=== PATIENT | male | born 1965 | race African-American/Black ===

== ENCOUNTER 2016-06-24 12:57 | Inpatient (IN) | payer MEDICARE, MEDICAID ==
[~2016-06-24] VITALS: Ht 175.3 cm; Wt 95.1 kg
[~2016-06-24 12:57] MED LIST: AMLO2.5T PO; BENZ1TAB10 PO; DIVA500T69 PO; LEVO25TA9 PO; LITH300C3 PO; OLAN10TA22 PO; OMEP20 PO; ZOLP10 PO
[2016-06-24] MEDS ORDERED: DIPH25 PO (13:57)
[2016-06-24 14:35] LABS: BASOPHILS # (AUTO) 0.01 K/uL (0.00-0.20); BASOPHILS % (AUTO) 0.2 % (0.0-2.0); EOSINOPHILS # (AUTO) 0.09 K/uL (0.00-0.70); HEMOGLOBIN 13.8 g/dL (13.5-17.5); LYMPHOCYTES # (AUTO) 1.4 K/uL (1.0-4.8); LYMPHOCYTES % (AUTO) 27.5 % (22.0-44.0); MEAN CORPUSCULAR HEMOGLOBIN 30.6 pg (26.0-34.0); MEAN CORPUSCULAR HGB CONC 32.8 G/dL (31.0-37.0); MEAN CORPUSCULAR VOLUME 93 fL (80-100); MONOCYTES # (AUTO) 0.3 K/uL (0.1-1.0); MONOCYTES % (AUTO) 6.4 % (2.0-9.0); NEUTROPHILS # (AUTO) 3.3 K/uL (1.8-7.7); NEUTROPHILS % (AUTO) 64.2 % (40.0-70.0); PLATELET COUNT (AUTO) 213 K/uL (150-450); RED CELL DISTRIBUTION WIDTH 14.7 % (11.5-14.5); WHITE BLOOD COUNT (AUTO) 5.1 K/uL (4.5-11.0)
[2016-06-24 14:38] LABS: ANION GAP 6 mmol/L (8-16); CARBON DIOXIDE 31 mmol/L (22-29); CHLORIDE 105 mmol/L (98-107); POTASSIUM 4.4 mmol/L (3.5-5.1); SODIUM SERUM 142 mmol/L (136-145)
[2016-06-24 14:39] LABS: ALANINE AMINOTRANSFERASE 42 U/L (12-78); ALBUMIN 4.2 g/dL (3.4-5.0); ASPARTATE AMINOTRANSFERASE 26 U/L (15-37); BILIRUBIN,TOTAL 0.4 mg/dL (0.1-1.0); CALCIUM, TOTAL 9.3 mg/dL (8.8-10.5); CREATININE 1.48 mg/dL (0.60-1.30); GLOMERULAR FILTR. RATE CALC > 60 mL/min (>60); TOTAL PROTEIN, SERUM 7.5 g/dL (6.4-8.2); UREA NITROGEN, BLOOD 16 mg/dL (7-18)
[2016-06-24] MEDS ORDERED: PROMETHAZINE HCL 25 MG TABLET PO PRN (15:15)
[2016-06-24] MEDS ORDERED: ZOLPIDEM TARTRATE 10 MG TABLET PO PRN (15:15)
[2016-06-24] MEDS ORDERED: LOPERAMIDE HCL 2 MG CAPSULE PO PRN (15:15)
[2016-06-24] MEDS ORDERED: GuaiFENesin/D-METHORPHAN [SUGAR-FREE] 200-20MG/10 ML SYRUP UDCUP PO PRN (15:15)
[2016-06-24] MEDS ORDERED: ACETAMINOPHEN 325 MG TABLET PO PRN (15:15)
[2016-06-24] MEDS ORDERED: HALOPERIDOL 5 MG TABLET PO PRN (15:15)
[2016-06-24] MEDS ORDERED: MAGNESIUM HYDROXIDE SUSPENSION 30 ML UDCUP PO PRN (15:15)
[2016-06-24] MEDS ORDERED: MAG HYDROX/AL HYDROX/SIMETH ES 30 ML SUSPENSION UDCUP PO PRN (15:15)
[2016-06-24] MEDS ORDERED: HydrOXYzine PAMOATE 50 MG CAPSULE PO PRN (15:15)
[2016-06-24] MEDS ORDERED: LORazepam 2 MG TABLET PO ONE (15:45)
[2016-06-24] MEDS ORDERED: HALOPERIDOL 5 MG TABLET PO ONE (15:45)
[2016-06-24 18:37] VITALS: BP 136/77
[2016-06-24] MEDS: BENZTROPINE MESYLATE 2 MG TABLET PO SCH (19:30)
[2016-06-24] MEDS: THIAMINE HCL 100 MG TABLET PO SCH (19:30)
[2016-06-24] MEDS: HALOPERIDOL 10 MG TABLET PO SCH (20:47)
[2016-06-24] MEDS: ARIPiprazole 10 MG TABLET PO SCH (20:47)
[2016-06-24] MEDS: DIVALPROEX SODIUM 500 MG ER TABLET PO SCH (20:47)
[2016-06-24] MEDS: DiphenhydrAMINE HCL 50 MG CAPSULE PO SCH (20:47)
[2016-06-24] MEDS: LITHIUM CARBONATE 300 MG CAPSULE PO SCH (20:47)
[2016-06-24] MEDS ORDERED: DiphenhydrAMINE HCL 25 MG CAPSULE PO SCH (21:00)
[2016-06-25 03:56] VITALS: BP 126/86
[2016-06-25 08:18] LABS: BASOPHILS % (AUTO) 0.1 % (0.0-2.0); EOSINOPHILS % (AUTO) 2.6 % (1.0-6.0); HEMOGLOBIN 13.7 g/dL (13.5-17.5); LYMPHOCYTES # (AUTO) 1.4 K/uL (1.0-4.8); LYMPHOCYTES % (AUTO) 30.8 % (22.0-44.0); MEAN CORPUSCULAR HGB CONC 31.9 G/dL (31.0-37.0); MEAN CORPUSCULAR VOLUME 94 fL (80-100); MONOCYTES # (AUTO) 0.4 K/uL (0.1-1.0); MONOCYTES % (AUTO) 8.4 % (2.0-9.0); NEUTROPHILS # (AUTO) 2.7 K/uL (1.8-7.7); NEUTROPHILS % (AUTO) 58.1 % (40.0-70.0); PLATELET COUNT (AUTO) 199 K/uL (150-450); RED BLOOD CELL COUNT(AUTO) 4.56 MIL/uL (4.50-5.90); RED CELL DISTRIBUTION WIDTH 15.2 % (11.5-14.5); WHITE BLOOD COUNT (AUTO) 4.7 K/uL (4.5-11.0)
[2016-06-25 08:24] LABS: LITHIUM 1.04 mmol/L (0.60-1.20)
[2016-06-25 08:27] VITALS: BP 143/88
[2016-06-25 08:28] LABS: HEMOGLOBIN A1C 5.1 % (4.5-6.2)
[2016-06-25] MEDS: BENZTROPINE MESYLATE 2 MG TABLET PO SCH ×2 (08:55→16:48)
[2016-06-25] MEDS: MULTIVITAMINS WITH MINERALS, THERAPEUTIC TABLET PO SCH (08:55)
[2016-06-25] MEDS: THIAMINE HCL 100 MG TABLET PO SCH ×2 (08:55→16:48)
[2016-06-25] MEDS: FOLIC ACID 1 MG TABLET PO SCH (08:55)
[2016-06-25] MEDS: NICOTINE 7 MG/24 HOUR PATCH TD SCH ×2 (08:57→09:19)
[2016-06-25 09:03] LABS: ALANINE AMINOTRANSFERASE 37 U/L (12-78); ALBUMIN 3.9 g/dL (3.4-5.0); ANION GAP 7 mmol/L (8-16); ASPARTATE AMINOTRANSFERASE 23 U/L (15-37); BILIRUBIN,TOTAL 0.5 mg/dL (0.1-1.0); CALCIUM, TOTAL 9.5 mg/dL (8.8-10.5); CARBON DIOXIDE 29 mmol/L (22-29); CHLORIDE 108 mmol/L (98-107); CHOL/HDL RATIO 3.8 (4.2-7.3); CREATININE 1.12 mg/dL (0.60-1.30); GLOMERULAR FILTR. RATE CALC > 60 mL/min (>60); POTASSIUM 4.7 mmol/L (3.5-5.1); SODIUM SERUM 144 mmol/L (136-145); THYROID STIMULATING HORMONE 6.91 uIU/mL (0.36-3.74); TOTAL PROTEIN, SERUM 7.3 g/dL (6.4-8.2); UREA NITROGEN, BLOOD 17 mg/dL (7-18); VALPROIC ACID 90 mcg/mL (50-100)
[2016-06-25] MEDS: LORazepam 2 MG TABLET PO PRN (12:15)
[2016-06-25 16:08] VITALS: BP 126/90
[2016-06-25] MEDS: HALOPERIDOL 10 MG TABLET PO SCH (20:40)
[2016-06-25] MEDS: LITHIUM CARBONATE 300 MG CAPSULE PO SCH (20:40)
[2016-06-25] MEDS: ARIPiprazole 10 MG TABLET PO SCH (20:40)
[2016-06-25] MEDS: DiphenhydrAMINE HCL 50 MG CAPSULE PO SCH (20:41)
[2016-06-25] MEDS: DIVALPROEX SODIUM 500 MG ER TABLET PO SCH (20:41)
[2016-06-25] MEDS: ALBUTEROL SULFATE HFA 90 MCG/PUFF 8 GM INHALER IH PRN (21:11)
[2016-06-26 00:23] VITALS: BP 121/86
[2016-06-26] MEDS: THIAMINE HCL 100 MG TABLET PO SCH ×2 (08:10→16:38)
[2016-06-26] MEDS: BENZTROPINE MESYLATE 2 MG TABLET PO SCH ×2 (08:10→16:38)
[2016-06-26] MEDS: FOLIC ACID 1 MG TABLET PO SCH (08:10)
[2016-06-26] MEDS: MULTIVITAMINS WITH MINERALS, THERAPEUTIC TABLET PO SCH (08:10)
[2016-06-26] MEDS: NICOTINE 7 MG/24 HOUR PATCH TD SCH (08:12)
[2016-06-26] MEDS: ALBUTEROL SULFATE HFA 90 MCG/PUFF 8 GM INHALER IH PRN (08:13)
[2016-06-26 08:19] VITALS: BP 136/88
[2016-06-26] MEDS ORDERED: HYDROCORTISONE 1% 30 GM OINTMENT TP SCH (09:00)
[2016-06-26] MEDS ORDERED: NICOTINE 21 MG/24 HOUR PATCH TD SCH (12:00)
[2016-06-26] MEDS: LORazepam 2 MG TABLET PO PRN (12:26)
[2016-06-26] MEDS ORDERED: BENZ2TAB10 PO ×2 (14:44→16:11)
[2016-06-26] MEDS ORDERED: DIPH50 PO ×2 (14:44→16:11)
[2016-06-26] MEDS ORDERED: LITH300C3 PO (14:44)
[2016-06-26] MEDS ORDERED: DIVA500T52 PO (14:44)
[2016-06-26] MEDS ORDERED: ARIP10TA14 PO ×2 (14:44→16:11)
[2016-06-26 16:08] VITALS: BP 124/72
[2016-06-26] MEDS ORDERED: ALBU8HFA4 IH (16:11)
[2016-06-26] MEDS ORDERED: HC1C1.5 TP (16:11)
== END 2016-06-26 17:20 | disposition home or self-care (01) | DRG 885 ==
LOC: EEVIPCON 13:02 → EMS 13:02 → B2X 16:58
PROVIDERS: ADMIT Psychiatry & Neurology Psychiatry; ATTEND Psychiatry & Neurology Psychiatry
PROC: GZ51ZZZ Individual Psychotherapy, Behavioral (ICD-10-PCS; principal; 2016-06-24)
DX: F25.0 Schizoaffective disorder, bipolar type (principal); I10 Essential (primary) hypertension; H54.0 Blindness, both eyes; F20.0 Paranoid schizophrenia; F17.210 Nicotine dependence, cigarettes, uncomplicated; E78.00 Pure hypercholesterolemia, unspecified; E03.9 Hypothyroidism, unspecified; J45.909 Unspecified asthma, uncomplicated; K21.9 Gastro-esophageal reflux disease without esophagitis; Z91.19 Patient's noncompliance with other medical treatment and regimen; Z88.8 Allergy status to other drugs, medicaments and biological substances; Z88.5 Allergy status to narcotic agent; Z79.899 Other long term (current) drug therapy; F41.9 Anxiety disorder, unspecified
CPT/HCPCS: 83036; 84439; 84443; 86592; 99285; G0480; J3535

== ENCOUNTER → 2017-04-01 | Outpatient (CLI) | payer MEDICARE, OTHER, SELFPAY ==
[~2017-04-01] MED LIST changes: +ALBU8HFA4 IH; -AMLO2.5T PO; +ARIP10TA8 PO; -BENZ1TAB10 PO; +BENZ2TAB10 PO; +DIPH50 PO; +DIVA500T52 PO; +HC1C1.5 TP; -LEVO25TA9 PO; -OLAN10TA22 PO; -OMEP20 PO; -ZOLP10 PO
[2017-04-02 20:15] LABS: CHOL/HDL RATIO 3.2 (4.2-7.3)
== END | disposition home or self-care (01) ==
LOC: LABMN 09:15
PROVIDERS: ATTEND Psychiatry & Neurology Psychiatry
DX: F25.0 Schizoaffective disorder, bipolar type (principal); R79.89 Other specified abnormal findings of blood chemistry
CPT/HCPCS: 82947

== ENCOUNTER 2017-04-07 11:08 | Inpatient (IN) | payer MEDICARE, MEDICAID ==
[~2017-04-07] VITALS: Ht 172.7 cm; Wt 84.5 kg
[2017-04-07] MEDS ORDERED: ChlorproMAZINE HCL 100 MG TABLET PO PRN (11:45)
[2017-04-07] MEDS ORDERED: ALBUTEROL SULFATE HFA 90 MCG/PUFF 8 GM INHALER IH PRN (11:45)
[2017-04-07] MEDS ORDERED: OLANZapine 5 MG RAPDIS TABLET PO PRN (11:45)
[2017-04-07 13:46] VITALS: BP 144/98
[2017-04-07 13:55] VITALS: BP 144/89
[2017-04-07] MEDS ORDERED: INFLUENZA VIRUS VACCINE QVS 2017-18 (3YR+)/PF 60 MCG/0.5 ML SYRINGE IM ONE (14:00)
[2017-04-07] MEDS ORDERED: PNEUMOCOCCAL VACCINE POLYVALENT 0.5 ML VIAL [PPSV23] IM ONE (14:00)
[2017-04-07] MEDS: LORazepam 2 MG TABLET PO PRN (14:03)
[2017-04-07] MEDS: NICOTINE 14 MG/24 HOUR PATCH TD SCH (14:10)
[2017-04-07] MEDS ORDERED: TUBERCULIN, PURIFIED PROTEIN DERIVATIVE 5 TU/0.1 ML SYG ID ONE (16:00)
[2017-04-07] MEDS ORDERED: FluPHENAZine HCL 5 MG TABLET PO PRN (16:00)
[2017-04-07] MEDS ORDERED: PROMETHAZINE HCL 25 MG TABLET PO PRN (16:00)
[2017-04-07] MEDS ORDERED: HydrOXYzine PAMOATE 50 MG CAPSULE PO PRN (16:00)
[2017-04-07] MEDS ORDERED: MAG HYDROX/AL HYDROX/SIMETH ES 30 ML SUSPENSION UDCUP PO PRN (16:00)
[2017-04-07] MEDS ORDERED: MAGNESIUM HYDROXIDE SUSPENSION 30 ML UDCUP PO PRN (16:00)
[2017-04-07] MEDS ORDERED: GuaiFENesin/D-METHORPHAN [SUGAR-FREE] 200-20MG/10 ML SYRUP UDCUP PO PRN (16:00)
[2017-04-07] MEDS ORDERED: LOPERAMIDE HCL 2 MG CAPSULE PO PRN (16:00)
[2017-04-07] MEDS ORDERED: ACETAMINOPHEN 325 MG TABLET PO PRN (16:00)
[2017-04-07 16:23] VITALS: BP 131/84
[2017-04-07] MEDS: THIAMINE HCL 100 MG TABLET PO SCH (16:57)
[2017-04-07] MEDS ORDERED: BENZTROPINE MESYLATE 2 MG TABLET PO SCH (17:00)
[2017-04-07] MEDS: BENZTROPINE MESYLATE 1 MG TABLET PO SCH (17:57)
[2017-04-07] MEDS: ZOLPIDEM TARTRATE 10 MG TABLET PO SCH (20:48)
[2017-04-07] MEDS: TAMSULOSIN HCL 0.4 MG CAPSULE PO SCH (20:49)
[2017-04-07] MEDS ORDERED: DiphenhydrAMINE HCL 50 MG CAPSULE PO SCH (21:00)
[2017-04-07] MEDS ORDERED: LITHIUM CARBONATE 300 MG CAPSULE PO SCH (21:00)
[2017-04-07] MEDS ORDERED: DIVALPROEX SODIUM 500 MG ER TABLET PO SCH (21:00)
[2017-04-07] MEDS ORDERED: FluPHENAZine HCL 10 MG TABLET PO SCH (21:00)
[2017-04-08 00:14] VITALS: BP 135/72
[2017-04-08] MEDS ORDERED: LEVOTHYROXINE SODIUM 25 MCG TABLET PO SCH (06:30)
[2017-04-08 06:45] VITALS: BP 129/77
[2017-04-08] MEDS: AmLODIPine BESYLATE 2.5 MG TABLET PO SCH (06:51)
[2017-04-08 08:00] VITALS: BP 133/87
[2017-04-08] MEDS: DOCUSATE SODIUM 250 MG CAPSULE PO SCH (08:14)
[2017-04-08] MEDS: OMEPRAZOLE 20 MG CAPSULE PO SCH (08:14)
[2017-04-08] MEDS: THIAMINE HCL 100 MG TABLET PO SCH ×2 (08:14→16:37)
[2017-04-08] MEDS: BENZTROPINE MESYLATE 1 MG TABLET PO SCH (08:14)
[2017-04-08] MEDS: MULTIVITAMINS WITH MINERALS, THERAPEUTIC TABLET PO SCH (08:15)
[2017-04-08] MEDS: FOLIC ACID 1 MG TABLET PO SCH (08:15)
[2017-04-08] MEDS: ASPIRIN 81 MG EC TABLET PO SCH (08:15)
[2017-04-08] MEDS: NICOTINE 14 MG/24 HOUR PATCH TD SCH (08:15)
[2017-04-08 08:33] LABS: BASOPHILS % (AUTO) 0.4 % (0.0-2.0); EOSINOPHILS % (AUTO) 5.4 % (1.0-6.0); HEMATOCRIT 41.3 % (41-53); HEMOGLOBIN 13.9 g/dL (13.5-17.5); LYMPHOCYTES # (AUTO) 1.8 K/uL (1.0-4.8); LYMPHOCYTES % (AUTO) 37.5 % (22.0-44.0); MEAN CORPUSCULAR HEMOGLOBIN 31.1 pg (26.0-34.0); MEAN CORPUSCULAR HGB CONC 33.7 G/dL (31.0-37.0); MEAN CORPUSCULAR VOLUME 92 fL (80-100); MONOCYTES # (AUTO) 0.3 K/uL (0.1-1.0); NEUTROPHILS # (AUTO) 2.4 K/uL (1.8-7.7); NEUTROPHILS % (AUTO) 49.7 % (40.0-70.0); PLATELET COUNT (AUTO) 214 K/uL (150-450); RED BLOOD CELL COUNT(AUTO) 4.47 MIL/uL (4.50-5.90); RED CELL DISTRIBUTION WIDTH 15.1 % (11.5-14.5)
[2017-04-08 08:42] LABS: HEMOGLOBIN A1C 4.5 % (4.5-6.2)
[2017-04-08 08:46] LABS: LITHIUM 0.88 mmol/L (0.60-1.20)
[2017-04-08] MEDS ORDERED: ARIPiprazole 10 MG TABLET PO SCH (09:00)
[2017-04-08 09:03] LABS: ALANINE AMINOTRANSFERASE 25 U/L (12-78); ALBUMIN 3.9 g/dL (3.4-5.0); ALKALINE PHOSPHATASE 62 U/L (46-116); ANION GAP 8 mmol/L (8-16); ASPARTATE AMINOTRANSFERASE 24 U/L (15-37); BILIRUBIN,TOTAL 0.5 mg/dL (0.1-1.0); CALCIUM, TOTAL 9.8 mg/dL (8.8-10.5); CARBON DIOXIDE 29 mmol/L (22-29); CHLORIDE 109 mmol/L (98-107); CHOL/HDL RATIO 3.4 (4.2-7.3); CHOLESTEROL 169 mg/dL (131-200); CREATININE 0.95 mg/dL (0.60-1.30); GLOMERULAR FILTR. RATE CALC > 60 mL/min (>60); GLUCOSE,RANDOM 79 mg/dL (70-110); HDL CHOLESTEROL 49 mg/dL (40-60); LDL CHOL (CALC.) 105 mg/dL (0-130); POTASSIUM 4.6 mmol/L (3.5-5.1); SODIUM SERUM 146 mmol/L (136-145); THYROID STIMULATING HORMONE 8.67 uIU/mL (0.36-3.74); TOTAL PROTEIN, SERUM 7.5 g/dL (6.4-8.2); TRIGLYCERIDES 75 mg/dL (15-150); UREA NITROGEN, BLOOD 23 mg/dL (7-18); VALPROIC ACID 87 mcg/mL (50-100)
[2017-04-08] MEDS: TRIAMCINOLONE 0.1% 60 ML LOTION TP SCH ×2 (12:17→16:38)
[2017-04-08] MEDS: LORazepam 2 MG TABLET PO PRN (12:53)
[2017-04-08] MEDS ORDERED: PALIPERIDONE PALMITATE 234 MG/1.5 ML SYRINGE IM ONE (14:45)
[2017-04-08] MEDS ORDERED: PALIPERIDONE 3 MG ER TABLET PO PRN (14:45)
[2017-04-08 16:18] VITALS: BP 138/80
[2017-04-08] MEDS: DIVALPROEX SODIUM 500 MG ER TABLET PO SCH (16:37)
[2017-04-08] MEDS: LITHIUM CARBONATE 300 MG CAPSULE PO SCH (16:37)
[2017-04-08] MEDS: ZOLPIDEM TARTRATE 10 MG TABLET PO SCH (20:36)
[2017-04-08] MEDS: PALIPERIDONE 3 MG ER TABLET PO SCH (20:36)
[2017-04-08] MEDS: TAMSULOSIN HCL 0.4 MG CAPSULE PO SCH (20:36)
[2017-04-09 06:09] VITALS: BP 130/86
[2017-04-09] MEDS: AmLODIPine BESYLATE 2.5 MG TABLET PO SCH (06:31)
[2017-04-09] MEDS: LEVOTHYROXINE SODIUM 25 MCG TABLET PO SCH (06:31)
[2017-04-09] MEDS: THIAMINE HCL 100 MG TABLET PO SCH ×2 (08:10→16:10)
[2017-04-09] MEDS: NICOTINE 14 MG/24 HOUR PATCH TD SCH (08:11)
[2017-04-09] MEDS: FOLIC ACID 1 MG TABLET PO SCH (08:11)
[2017-04-09] MEDS: LITHIUM CARBONATE 300 MG CAPSULE PO SCH ×3 (08:11→16:10)
[2017-04-09] MEDS: DOCUSATE SODIUM 250 MG CAPSULE PO SCH (08:11)
[2017-04-09] MEDS: OMEPRAZOLE 20 MG CAPSULE PO SCH (08:11)
[2017-04-09] MEDS: ASPIRIN 81 MG EC TABLET PO SCH (08:11)
[2017-04-09] MEDS: MULTIVITAMINS WITH MINERALS, THERAPEUTIC TABLET PO SCH (08:11)
[2017-04-09] MEDS: DIVALPROEX SODIUM 500 MG ER TABLET PO SCH ×3 (08:11→16:10)
[2017-04-09] MEDS: ATENOLOL 50 MG TABLET PO SCH (08:11)
[2017-04-09] MEDS: TRIAMCINOLONE 0.1% 60 ML LOTION TP SCH ×2 (08:13→16:11)
[2017-04-09 08:23] VITALS: BP 136/87
[2017-04-09] MEDS: LORazepam 2 MG TABLET PO PRN (14:18)
[2017-04-09 16:05] VITALS: BP 110/71
[2017-04-09] MEDS: PALIPERIDONE 3 MG ER TABLET PO SCH (20:42)
[2017-04-09] MEDS: ZOLPIDEM TARTRATE 10 MG TABLET PO SCH (20:42)
[2017-04-09] MEDS: TAMSULOSIN HCL 0.4 MG CAPSULE PO SCH (20:42)
[2017-04-10 05:33] VITALS: BP 125/93
[2017-04-10] MEDS: LEVOTHYROXINE SODIUM 25 MCG TABLET PO SCH (06:46)
[2017-04-10] MEDS: AmLODIPine BESYLATE 2.5 MG TABLET PO SCH (06:46)
[2017-04-10 08:34] LABS: ANION GAP 7 mmol/L (8-16); CALCIUM, TOTAL 9.4 mg/dL (8.8-10.5); CARBON DIOXIDE 31 mmol/L (22-29); CHLORIDE 106 mmol/L (98-107); CREATININE 0.97 mg/dL (0.60-1.30); GLOMERULAR FILTR. RATE CALC > 60 mL/min (>60); GLUCOSE,RANDOM 111 mg/dL (70-110); PHOSPHORUS 3.3 mg/dL (2.5-4.9); POTASSIUM 4.9 mmol/L (3.5-5.1); SODIUM SERUM 144 mmol/L (136-145); UREA NITROGEN, BLOOD 19 mg/dL (7-18)
[2017-04-10 08:36] VITALS: BP 140/80
[2017-04-10 08:41] LABS: HEMATOCRIT 40.8 % (41-53); HEMOGLOBIN 13.5 g/dL (13.5-17.5); MEAN CORPUSCULAR HEMOGLOBIN 30.7 pg (26.0-34.0); MEAN CORPUSCULAR VOLUME 93 fL (80-100); PLATELET COUNT (AUTO) 190 K/uL (150-450); RED BLOOD CELL COUNT(AUTO) 4.39 MIL/uL (4.50-5.90)
[2017-04-10] MEDS: OMEPRAZOLE 20 MG CAPSULE PO SCH (08:43)
[2017-04-10] MEDS: MULTIVITAMINS WITH MINERALS, THERAPEUTIC TABLET PO SCH (08:43)
[2017-04-10] MEDS: DOCUSATE SODIUM 250 MG CAPSULE PO SCH (08:44)
[2017-04-10] MEDS: THIAMINE HCL 100 MG TABLET PO SCH ×2 (08:44→16:35)
[2017-04-10] MEDS: NICOTINE 14 MG/24 HOUR PATCH TD SCH (08:44)
[2017-04-10] MEDS: ATENOLOL 50 MG TABLET PO SCH (08:44)
[2017-04-10] MEDS: FOLIC ACID 1 MG TABLET PO SCH (08:44)
[2017-04-10] MEDS: DIVALPROEX SODIUM 500 MG ER TABLET PO SCH ×3 (08:44→16:35)
[2017-04-10] MEDS: ASPIRIN 81 MG EC TABLET PO SCH (08:44)
[2017-04-10] MEDS: LITHIUM CARBONATE 300 MG CAPSULE PO SCH ×3 (08:44→16:35)
[2017-04-10] MEDS: TRIAMCINOLONE 0.1% 60 ML LOTION TP SCH ×2 (08:50→16:35)
[2017-04-10 10:01] LABS: EOSINOPHILS % (MANUAL) 5 % (1-6); LYMPHOCYTES % (MANUAL) 35 % (22-44); MONOCYTES % (MANUAL) 7 % (2-9); SEGMENTED NEUTROPHILS % 53 % (40-70)
[2017-04-10] MEDS: LORazepam 2 MG TABLET PO PRN (14:37)
[2017-04-10 16:22] VITALS: BP 132/77
[2017-04-10] MEDS: ZOLPIDEM TARTRATE 10 MG TABLET PO SCH (20:43)
[2017-04-10] MEDS: TAMSULOSIN HCL 0.4 MG CAPSULE PO SCH (20:43)
[2017-04-10] MEDS: PALIPERIDONE 3 MG ER TABLET PO SCH (20:43)
[2017-04-11 01:15] VITALS: BP 109/63
[2017-04-11] MEDS: AmLODIPine BESYLATE 2.5 MG TABLET PO SCH (06:34)
[2017-04-11] MEDS: LEVOTHYROXINE SODIUM 25 MCG TABLET PO SCH (06:34)
[2017-04-11 08:37] VITALS: BP 135/77
[2017-04-11 08:44] LABS: LITHIUM 0.8 mmol/L (0.60-1.20)
[2017-04-11] MEDS: DOCUSATE SODIUM 250 MG CAPSULE PO SCH (08:46)
[2017-04-11] MEDS: THIAMINE HCL 100 MG TABLET PO SCH ×2 (08:46→16:02)
[2017-04-11] MEDS: LITHIUM CARBONATE 300 MG CAPSULE PO SCH ×3 (08:46→16:02)
[2017-04-11] MEDS: MULTIVITAMINS WITH MINERALS, THERAPEUTIC TABLET PO SCH (08:46)
[2017-04-11] MEDS: DIVALPROEX SODIUM 500 MG ER TABLET PO SCH ×3 (08:46→16:02)
[2017-04-11] MEDS: OMEPRAZOLE 20 MG CAPSULE PO SCH (08:46)
[2017-04-11] MEDS: FOLIC ACID 1 MG TABLET PO SCH (08:47)
[2017-04-11] MEDS: ASPIRIN 81 MG EC TABLET PO SCH (08:47)
[2017-04-11] MEDS: ATENOLOL 50 MG TABLET PO SCH (08:47)
[2017-04-11] MEDS: NICOTINE 14 MG/24 HOUR PATCH TD SCH (08:47)
[2017-04-11] MEDS: TRIAMCINOLONE 0.1% 60 ML LOTION TP SCH ×2 (08:48→16:02)
[2017-04-11 08:53] LABS: THYROID STIMULATING HORMONE 9.96 uIU/mL (0.36-3.74)
[2017-04-11] MEDS: LORazepam 2 MG TABLET PO PRN (14:07)
[2017-04-11 16:00] VITALS: BP 132/79
[2017-04-11] MEDS: ZOLPIDEM TARTRATE 10 MG TABLET PO SCH (20:41)
[2017-04-11] MEDS: TAMSULOSIN HCL 0.4 MG CAPSULE PO SCH (20:41)
[2017-04-11] MEDS: PALIPERIDONE 3 MG ER TABLET PO SCH (20:41)
[2017-04-12 00:21] VITALS: BP 109/65
[2017-04-12 06:25] VITALS: BP 130/73
[2017-04-12] MEDS: LEVOTHYROXINE SODIUM 25 MCG TABLET PO SCH (06:25)
[2017-04-12] MEDS: AmLODIPine BESYLATE 2.5 MG TABLET PO SCH (06:26)
[2017-04-12] MEDS: MULTIVITAMINS WITH MINERALS, THERAPEUTIC TABLET PO SCH (08:22)
[2017-04-12] MEDS: OMEPRAZOLE 20 MG CAPSULE PO SCH (08:22)
[2017-04-12] MEDS: LITHIUM CARBONATE 300 MG CAPSULE PO SCH ×3 (08:22→16:43)
[2017-04-12] MEDS: ATENOLOL 50 MG TABLET PO SCH (08:22)
[2017-04-12] MEDS: ASPIRIN 81 MG EC TABLET PO SCH (08:23)
[2017-04-12] MEDS: THIAMINE HCL 100 MG TABLET PO SCH ×2 (08:23→16:43)
[2017-04-12] MEDS: DIVALPROEX SODIUM 500 MG ER TABLET PO SCH ×3 (08:23→16:43)
[2017-04-12] MEDS: DOCUSATE SODIUM 250 MG CAPSULE PO SCH (08:23)
[2017-04-12] MEDS: FOLIC ACID 1 MG TABLET PO SCH (08:23)
[2017-04-12] MEDS: NICOTINE 14 MG/24 HOUR PATCH TD SCH (08:24)
[2017-04-12] MEDS: TRIAMCINOLONE 0.1% 60 ML LOTION TP SCH ×2 (08:25→16:44)
[2017-04-12 08:43] VITALS: BP 118/75
[2017-04-12] MEDS ORDERED: PALIPERIDONE PALMITATE 156 MG/ML SYRINGE IM ONE (09:00)
[2017-04-12] MEDS: LORazepam 2 MG TABLET PO PRN (10:55)
[2017-04-12 16:23] VITALS: BP 138/85
[2017-04-12] MEDS: ZOLPIDEM TARTRATE 10 MG TABLET PO SCH (20:50)
[2017-04-12] MEDS: TAMSULOSIN HCL 0.4 MG CAPSULE PO SCH (20:50)
[2017-04-13 01:39] VITALS: BP 134/88
[2017-04-13 06:25] VITALS: BP 122/82
[2017-04-13] MEDS: AmLODIPine BESYLATE 2.5 MG TABLET PO SCH (06:45)
[2017-04-13] MEDS: LEVOTHYROXINE SODIUM 100 MCG TABLET PO SCH (06:46)
[2017-04-13] MEDS: OMEPRAZOLE 20 MG CAPSULE PO SCH (08:13)
[2017-04-13] MEDS: ASPIRIN 81 MG EC TABLET PO SCH (08:13)
[2017-04-13] MEDS: MULTIVITAMINS WITH MINERALS, THERAPEUTIC TABLET PO SCH (08:13)
[2017-04-13] MEDS: DIVALPROEX SODIUM 500 MG ER TABLET PO SCH ×3 (08:13→16:31)
[2017-04-13] MEDS: DOCUSATE SODIUM 250 MG CAPSULE PO SCH (08:13)
[2017-04-13] MEDS: LITHIUM CARBONATE 300 MG CAPSULE PO SCH ×3 (08:13→16:31)
[2017-04-13] MEDS: THIAMINE HCL 100 MG TABLET PO SCH ×2 (08:13→16:31)
[2017-04-13] MEDS: FOLIC ACID 1 MG TABLET PO SCH (08:13)
[2017-04-13] MEDS: ATENOLOL 50 MG TABLET PO SCH (08:13)
[2017-04-13] MEDS: TRIAMCINOLONE 0.1% 60 ML LOTION TP SCH ×2 (08:15→16:31)
[2017-04-13] MEDS: NICOTINE 14 MG/24 HOUR PATCH TD SCH (08:15)
[2017-04-13 08:43] VITALS: BP 118/76
[2017-04-13 16:11] VITALS: BP 131/80
[2017-04-13] MEDS: TAMSULOSIN HCL 0.4 MG CAPSULE PO SCH (20:45)
[2017-04-13] MEDS: ZOLPIDEM TARTRATE 10 MG TABLET PO SCH (20:45)
[2017-04-14] MEDS: LORazepam 2 MG TABLET PO PRN (00:08)
[2017-04-14 00:10] VITALS: BP 117/74
[2017-04-14] MEDS: AmLODIPine BESYLATE 2.5 MG TABLET PO SCH (07:20)
[2017-04-14] MEDS: LEVOTHYROXINE SODIUM 100 MCG TABLET PO SCH (07:24)
[2017-04-14] MEDS: MULTIVITAMINS WITH MINERALS, THERAPEUTIC TABLET PO SCH (08:22)
[2017-04-14] MEDS: LITHIUM CARBONATE 300 MG CAPSULE PO SCH ×3 (08:22→16:40)
[2017-04-14] MEDS: ATENOLOL 50 MG TABLET PO SCH (08:22)
[2017-04-14] MEDS: THIAMINE HCL 100 MG TABLET PO SCH ×2 (08:23→16:40)
[2017-04-14] MEDS: DOCUSATE SODIUM 250 MG CAPSULE PO SCH (08:23)
[2017-04-14] MEDS: NICOTINE 14 MG/24 HOUR PATCH TD SCH (08:23)
[2017-04-14] MEDS: ASPIRIN 81 MG EC TABLET PO SCH (08:23)
[2017-04-14] MEDS: DIVALPROEX SODIUM 500 MG ER TABLET PO SCH ×3 (08:23→16:40)
[2017-04-14] MEDS: OMEPRAZOLE 20 MG CAPSULE PO SCH (08:23)
[2017-04-14] MEDS: FOLIC ACID 1 MG TABLET PO SCH (08:23)
[2017-04-14] MEDS: TRIAMCINOLONE 0.1% 60 ML LOTION TP SCH ×2 (08:24→16:40)
[2017-04-14 09:19] VITALS: BP 110/83
[2017-04-14 16:15] VITALS: BP 132/84
[2017-04-14] MEDS: ZOLPIDEM TARTRATE 10 MG TABLET PO SCH (20:51)
[2017-04-14] MEDS: TAMSULOSIN HCL 0.4 MG CAPSULE PO SCH (20:51)
[2017-04-15 01:44] VITALS: BP 118/78
[2017-04-15] MEDS: AmLODIPine BESYLATE 2.5 MG TABLET PO SCH (06:46)
[2017-04-15] MEDS: LEVOTHYROXINE SODIUM 100 MCG TABLET PO SCH (06:46)
[2017-04-15] MEDS: LITHIUM CARBONATE 300 MG CAPSULE PO SCH ×3 (08:05→16:31)
[2017-04-15] MEDS: DIVALPROEX SODIUM 500 MG ER TABLET PO SCH ×3 (08:05→16:31)
[2017-04-15] MEDS: MULTIVITAMINS WITH MINERALS, THERAPEUTIC TABLET PO SCH (08:05)
[2017-04-15] MEDS: OMEPRAZOLE 20 MG CAPSULE PO SCH (08:05)
[2017-04-15] MEDS: FOLIC ACID 1 MG TABLET PO SCH (08:05)
[2017-04-15] MEDS: ASPIRIN 81 MG EC TABLET PO SCH (08:05)
[2017-04-15] MEDS: THIAMINE HCL 100 MG TABLET PO SCH ×2 (08:05→16:31)
[2017-04-15] MEDS: ATENOLOL 50 MG TABLET PO SCH (08:06)
[2017-04-15] MEDS: DOCUSATE SODIUM 250 MG CAPSULE PO SCH (08:06)
[2017-04-15] MEDS: TRIAMCINOLONE 0.1% 60 ML LOTION TP SCH ×2 (08:06→16:31)
[2017-04-15] MEDS: NICOTINE 14 MG/24 HOUR PATCH TD SCH (08:06)
[2017-04-15 08:25] VITALS: BP 135/65
[2017-04-15] MEDS ORDERED: DIVA500T52 PO (11:47)
[2017-04-15] MEDS ORDERED: PALI234D IM (11:47)
[2017-04-15] MEDS ORDERED: LITH300C3 PO (11:47)
[2017-04-15 16:18] VITALS: BP 116/62
[2017-04-15] MEDS: ZOLPIDEM TARTRATE 10 MG TABLET PO SCH (20:59)
[2017-04-15] MEDS: TAMSULOSIN HCL 0.4 MG CAPSULE PO SCH (20:59)
[2017-04-15] MEDS: LORazepam 2 MG TABLET PO PRN (21:45)
[2017-04-16 00:55] VITALS: BP 140/75
[2017-04-16 06:25] VITALS: BP 122/65
[2017-04-16] MEDS: AmLODIPine BESYLATE 2.5 MG TABLET PO SCH (07:14)
[2017-04-16] MEDS: LEVOTHYROXINE SODIUM 100 MCG TABLET PO SCH (07:14)
[2017-04-16] MEDS ORDERED: ATEN50TA PO (07:59)
[2017-04-16] MEDS ORDERED: AMLO-511 PO (07:59)
[2017-04-16] MEDS ORDERED: LITH300C3 PO (07:59)
[2017-04-16] MEDS ORDERED: LEVO100 PO (07:59)
[2017-04-16] MEDS ORDERED: ASPI81 PO (07:59)
[2017-04-16] MEDS ORDERED: TAMS0.4C32 PO (07:59)
[2017-04-16] MEDS ORDERED: AMLO2.5T PO (07:59)
[2017-04-16] MEDS ORDERED: OMEP20 PO (07:59)
[2017-04-16] MEDS ORDERED: DIVA500T52 PO (07:59)
[2017-04-16] MEDS ORDERED: ALBU8HFA4 IH (07:59)
[2017-04-16] MEDS ORDERED: DOCU250C91 PO (07:59)
[2017-04-16] MEDS ORDERED: TRIA15OI6 TP (08:01)
[2017-04-16 08:14] VITALS: BP 135/84
[2017-04-16] MEDS: DOCUSATE SODIUM 250 MG CAPSULE PO SCH (08:24)
[2017-04-16] MEDS: MULTIVITAMINS WITH MINERALS, THERAPEUTIC TABLET PO SCH (08:24)
[2017-04-16] MEDS: THIAMINE HCL 100 MG TABLET PO SCH (08:24)
[2017-04-16] MEDS: ATENOLOL 50 MG TABLET PO SCH (08:24)
[2017-04-16] MEDS: DIVALPROEX SODIUM 500 MG ER TABLET PO SCH (08:24)
[2017-04-16] MEDS: FOLIC ACID 1 MG TABLET PO SCH (08:25)
[2017-04-16] MEDS: OMEPRAZOLE 20 MG CAPSULE PO SCH (08:25)
[2017-04-16] MEDS: ASPIRIN 81 MG EC TABLET PO SCH (08:25)
[2017-04-16] MEDS: LITHIUM CARBONATE 300 MG CAPSULE PO SCH (08:25)
[2017-04-16] MEDS: NICOTINE 14 MG/24 HOUR PATCH TD SCH (08:26)
[2017-04-16] MEDS: TRIAMCINOLONE 0.1% 60 ML LOTION TP SCH (08:27)
[2017-04-16 08:45] LABS: ANION GAP 4 mmol/L (8-16); CALCIUM, TOTAL 9.7 mg/dL (8.8-10.5); CARBON DIOXIDE 33 mmol/L (22-29); CHLORIDE 106 mmol/L (98-107); CREATININE 1.02 mg/dL (0.60-1.30); GLOMERULAR FILTR. RATE CALC > 60 mL/min (>60); GLUCOSE,RANDOM 75 mg/dL (70-110); POTASSIUM 5.1 mmol/L (3.5-5.1); SODIUM SERUM 143 mmol/L (136-145); UREA NITROGEN, BLOOD 21 mg/dL (7-18)
[2017-04-21] MEDS ORDERED: FluPHENAZine DECANOATE 25 MG/ML IM SCH (09:00)
== END 2017-04-16 11:41 | disposition home or self-care (01) | DRG 885 ==
LOC: B2X 12:32
PROVIDERS: ADMIT Psychiatry & Neurology Psychiatry; ATTEND Psychiatry & Neurology Psychiatry
PROC: 3E0234Z Introduction of Serum, Toxoid and Vaccine into Muscle, Percutaneous Approach (ICD-10-PCS; principal; 2017-04-07)
PROC: 3E0234Z Introduction of Serum, Toxoid and Vaccine into Muscle, Percutaneous Approach (ICD-10-PCS; 2017-04-07)
DX: F25.0 Schizoaffective disorder, bipolar type (principal); E87.0 Hyperosmolality and hypernatremia; E03.9 Hypothyroidism, unspecified; E78.00 Pure hypercholesterolemia, unspecified; F41.9 Anxiety disorder, unspecified; G47.00 Insomnia, unspecified; I10 Essential (primary) hypertension; J44.9 Chronic obstructive pulmonary disease, unspecified; L30.9 Dermatitis, unspecified; F17.210 Nicotine dependence, cigarettes, uncomplicated; Z91.19 Patient's noncompliance with other medical treatment and regimen; Z88.6 Allergy status to analgesic agent; Z88.8 Allergy status to other drugs, medicaments and biological substances; Z23 Encounter for immunization
CPT/HCPCS: 82306; 83036; 83735; 84100; 84295; 84436; 84443; 85007; 90471; 93005; G0481; J3535

== ENCOUNTER → 2017-06-23 | Outpatient (CLI) | payer MEDICARE, OTHER ==
[~2017-06-23] MED LIST changes: +AMLO-511 PO; +AMLO2.5T PO; -ARIP10TA8 PO; +ASPI81 PO; +ATEN50TA PO; -BENZ2TAB10 PO; -DIPH50 PO; +DIVA250T45 PO; -DIVA500T69 PO; +DOCU250C91 PO; +DSS100 PO; -HC1C1.5 TP; +LEVO100 PO; +NALT50TA PO; +OMEP20 PO; +PALI156D IM; +PALI234D IM; +TAMS0.4C32 PO; +TRIA15OI6 TP
== END | disposition home or self-care (01) ==
LOC: LABMN 11:30
PROVIDERS: ATTEND Internal Medicine
DX: F25.0 Schizoaffective disorder, bipolar type (principal)
CPT/HCPCS: 86705; 86706; 86708; 86709; 86803; 87340

== ENCOUNTER 2017-07-02 14:01 | Inpatient (IN) | payer MEDICARE, MEDICAID ==
[~2017-07-02] VITALS: Ht 172.7 cm; Wt 87.5 kg
[~2017-07-02 14:01] MED LIST changes: -DIVA250T45 PO; -DSS100 PO; -NALT50TA PO; -PALI156D IM
[2017-07-02] MEDS ORDERED: MAG HYDROX/AL HYDROX/SIMETH ES 30 ML SUSPENSION UDCUP PO PRN (14:30)
[2017-07-02] MEDS ORDERED: PALIPERIDONE 1.5 MG ER TABLET PO PRN (14:30)
[2017-07-02] MEDS ORDERED: HydrOXYzine PAMOATE 50 MG CAPSULE PO PRN (14:30)
[2017-07-02] MEDS ORDERED: GuaiFENesin/D-METHORPHAN [SUGAR-FREE] 200-20MG/10 ML SYRUP UDCUP PO PRN (14:30)
[2017-07-02] MEDS ORDERED: PROMETHAZINE HCL 25 MG TABLET PO PRN (14:30)
[2017-07-02] MEDS ORDERED: MAGNESIUM HYDROXIDE SUSPENSION 30 ML UDCUP PO PRN (14:30)
[2017-07-02] MEDS ORDERED: LORazepam 2 MG TABLET PO PRN (14:30)
[2017-07-02] MEDS ORDERED: LOPERAMIDE HCL 2 MG CAPSULE PO PRN (14:30)
[2017-07-02 16:22] VITALS: BP 110/73
[2017-07-02] MEDS: THIAMINE HCL 100 MG TABLET PO SCH (17:32)
[2017-07-02] MEDS: DIVALPROEX SODIUM 500 MG ER TABLET PO SCH (20:44)
[2017-07-02] MEDS: LITHIUM CARBONATE 300 MG CAPSULE PO SCH (20:44)
[2017-07-02] MEDS: PALIPERIDONE 3 MG ER TABLET PO SCH (20:44)
[2017-07-02] MEDS ORDERED: -PHARMACY VACCINE NOTE- MISC ONE (20:45)
[2017-07-03 05:14] VITALS: BP 107/65
[2017-07-03 08:10] VITALS: BP 105/60
[2017-07-03] MEDS ORDERED: HYPROMELLOSE 0.5% 15 ML OPHTHALMIC SOLUTION OU PRN (08:15)
[2017-07-03 08:31] LABS: BASOPHILS % (AUTO) 0.3 % (0.0-2.0); EOSINOPHILS % (AUTO) 4.4 % (1.0-6.0); HEMATOCRIT 39.7 % (41-53); HEMOGLOBIN 13.4 g/dL (13.5-17.5); LYMPHOCYTES # (AUTO) 1.1 K/uL (1.0-4.8); LYMPHOCYTES % (AUTO) 29.1 % (22.0-44.0); MEAN CORPUSCULAR HEMOGLOBIN 30.5 pg (26.0-34.0); MEAN CORPUSCULAR HGB CONC 33.6 G/dL (31.0-37.0); MEAN CORPUSCULAR VOLUME 91 fL (80-100); MONOCYTES # (AUTO) 0.2 K/uL (0.1-1.0); MONOCYTES % (AUTO) 6.3 % (2.0-9.0); NEUTROPHILS # (AUTO) 2.3 K/uL (1.8-7.7); NEUTROPHILS % (AUTO) 59.9 % (40.0-70.0); PLATELET COUNT (AUTO) 217 K/uL (150-450); RED BLOOD CELL COUNT(AUTO) 4.38 MIL/uL (4.50-5.90); RED CELL DISTRIBUTION WIDTH 13.4 % (11.5-14.5)
[2017-07-03] MEDS: MULTIVITAMINS WITH MINERALS, THERAPEUTIC TABLET PO SCH (08:48)
[2017-07-03] MEDS: NALTREXONE HCL 50 MG TABLET PO SCH (08:48)
[2017-07-03] MEDS: NICOTINE 21 MG/24 HOUR PATCH TD SCH (08:48)
[2017-07-03] MEDS: THIAMINE HCL 100 MG TABLET PO SCH ×2 (08:48→16:37)
[2017-07-03] MEDS: FOLIC ACID 1 MG TABLET PO SCH (08:48)
[2017-07-03 09:04] LABS: LITHIUM 0.89 mmol/L (0.60-1.20)
[2017-07-03 09:16] LABS: HEMOGLOBIN A1C 5.8 % (4.5-6.2)
[2017-07-03 09:27] LABS: ALANINE AMINOTRANSFERASE 26 U/L (12-78); ALBUMIN 3.8 g/dL (3.4-5.0); ALKALINE PHOSPHATASE 57 U/L (46-116); ANION GAP 4 mmol/L (8-16); ASPARTATE AMINOTRANSFERASE 15 U/L (15-37); BILIRUBIN,TOTAL 0.6 mg/dL (0.1-1.0); CALCIUM, TOTAL 9.2 mg/dL (8.8-10.5); CARBON DIOXIDE 31 mmol/L (22-29); CHLORIDE 107 mmol/L (98-107); CHOL/HDL RATIO 3.4 (4.2-7.3); CHOLESTEROL 145 mg/dL (131-200); CREATININE 1.09 mg/dL (0.60-1.30); FREE T4 (FREE THYROXINE) 1.03 ng/dL (0.76-1.46); GLOMERULAR FILTR. RATE CALC > 60 mL/min (>60); GLUCOSE,RANDOM 75 mg/dL (70-110); HCG,QUANTITATIVE < 1 mIU/mL (0-6); HDL CHOLESTEROL 43 mg/dL (40-60); LDL CHOL (CALC.) 93 mg/dL (0-130); POTASSIUM 4.7 mmol/L (3.5-5.1); SODIUM SERUM 142 mmol/L (136-145); THYROID STIMULATING HORMONE 0.73 uIU/mL (0.36-3.74); TOTAL PROTEIN, SERUM 7.4 g/dL (6.4-8.2); TRIGLYCERIDES 44 mg/dL (15-150); UREA NITROGEN, BLOOD 25 mg/dL (7-18); VALPROIC ACID 123 mcg/mL (50-100)
[2017-07-03 16:05] VITALS: BP 100/60
[2017-07-03] MEDS: ACETAMINOPHEN 325 MG TABLET PO PRN (18:25)
[2017-07-03] MEDS: PALIPERIDONE 3 MG ER TABLET PO SCH (20:36)
[2017-07-03] MEDS: DIVALPROEX SODIUM 500 MG ER TABLET PO SCH (20:36)
[2017-07-03] MEDS: LITHIUM CARBONATE 300 MG CAPSULE PO SCH (20:36)
[2017-07-04 06:17] VITALS: BP 118/63
[2017-07-04] MEDS: LEVOTHYROXINE SODIUM 100 MCG TABLET PO SCH (06:43)
[2017-07-04] MEDS: MULTIVITAMINS WITH MINERALS, THERAPEUTIC TABLET PO SCH (08:17)
[2017-07-04] MEDS: THIAMINE HCL 100 MG TABLET PO SCH ×2 (08:17→16:02)
[2017-07-04] MEDS: FOLIC ACID 1 MG TABLET PO SCH (08:17)
[2017-07-04] MEDS: NALTREXONE HCL 50 MG TABLET PO SCH (08:17)
[2017-07-04] MEDS: NICOTINE 21 MG/24 HOUR PATCH TD SCH (08:18)
[2017-07-04 08:30] VITALS: BP 120/75
[2017-07-04] MEDS: DIVALPROEX SODIUM 250 MG ER TABLET PO SCH (16:03)
[2017-07-04 16:13] VITALS: BP 130/76
[2017-07-04] MEDS: PALIPERIDONE 3 MG ER TABLET PO SCH (20:29)
[2017-07-04] MEDS: LITHIUM CARBONATE 300 MG CAPSULE PO SCH (20:30)
[2017-07-05 06:31] VITALS: BP 110/65
[2017-07-05] MEDS: LEVOTHYROXINE SODIUM 100 MCG TABLET PO SCH (06:53)
[2017-07-05 08:34] VITALS: BP 124/79
[2017-07-05 08:48] LABS: AMPHET/METH SCREEN,URINE NEGATIVE (NEGATIVE); BARBITURATE SCREEN, URINE NEGATIVE (NEGATIVE); BENZODIAZEPINES SCREEN,URINE NEGATIVE (NEGATIVE); CANNABINOID SCREEN,URINE NEGATIVE (NEGATIVE); COCAINE SCREEN,URINE NEGATIVE (NEGATIVE); METHADONE SCREEN, URINE NEGATIVE (NEGATIVE); OPIATE SCREEN,URINE NEGATIVE (NEGATIVE)
[2017-07-05 08:49] LABS: PHENCYCLIDINE SCREEN,URINE NEGATIVE (NEGATIVE)
[2017-07-05] MEDS: DIVALPROEX SODIUM 250 MG ER TABLET PO SCH ×2 (09:09→16:37)
[2017-07-05] MEDS: MULTIVITAMINS WITH MINERALS, THERAPEUTIC TABLET PO SCH (09:09)
[2017-07-05] MEDS: FOLIC ACID 1 MG TABLET PO SCH (09:10)
[2017-07-05] MEDS: THIAMINE HCL 100 MG TABLET PO SCH ×2 (09:10→16:37)
[2017-07-05] MEDS: NALTREXONE HCL 50 MG TABLET PO SCH (09:10)
[2017-07-05] MEDS: NICOTINE 21 MG/24 HOUR PATCH TD SCH (09:10)
[2017-07-05 09:11] LABS: APPEARANCE,URINE CLEAR (CLEAR); BILIRUBIN,URINE NEGATIVE (NEGATIVE); GLUCOSE, URINE (UA) NEGATIVE (NEGATIVE); KETONES,URINE NEGATIVE (NEGATIVE); LEUKOCYTE ESTERASE ,URINE NEGATIVE (NEGATIVE); NITRATE,URINE NEGATIVE (NEGATIVE); OCCULT BLOOD,URINE NEGATIVE (NEGATIVE); PH,URINE 6.5 (5.0-8.0); PROTEIN,URINE NEGATIVE (NEGATIVE); UROBILINOGEN,URINE 0.2 mg/dL (<=1.0)
[2017-07-05] MEDS: ASPIRIN 81 MG EC TABLET PO SCH (11:22)
[2017-07-05 12:49] VITALS: BP 118/74
[2017-07-05] MEDS: ACETAMINOPHEN 325 MG TABLET PO PRN ×2 (12:49→20:53)
[2017-07-05 16:07] VITALS: BP 128/64
[2017-07-05] MEDS: LITHIUM CARBONATE 300 MG CAPSULE PO SCH (20:33)
[2017-07-05] MEDS: PALIPERIDONE 3 MG ER TABLET PO SCH (20:33)
[2017-07-06 05:29] VITALS: BP 127/84
[2017-07-06] MEDS: LEVOTHYROXINE SODIUM 100 MCG TABLET PO SCH (06:28)
[2017-07-06 08:18] VITALS: BP 141/74
[2017-07-06] MEDS: THIAMINE HCL 100 MG TABLET PO SCH ×2 (08:28→16:44)
[2017-07-06] MEDS: DIVALPROEX SODIUM 250 MG ER TABLET PO SCH ×2 (08:29→16:44)
[2017-07-06] MEDS: ASPIRIN 81 MG EC TABLET PO SCH (08:29)
[2017-07-06] MEDS: MULTIVITAMINS WITH MINERALS, THERAPEUTIC TABLET PO SCH (08:29)
[2017-07-06] MEDS: NALTREXONE HCL 50 MG TABLET PO SCH (08:29)
[2017-07-06] MEDS: FOLIC ACID 1 MG TABLET PO SCH (08:29)
[2017-07-06] MEDS: NICOTINE 21 MG/24 HOUR PATCH TD SCH (08:30)
[2017-07-06] MEDS: BACITRACIN 28.4 GM OINTMENT TP SCH (09:11)
[2017-07-06] MEDS ORDERED: ACETAMINOPHEN 325 MG TABLET PO PRN (11:30)
[2017-07-06] MEDS ORDERED: BACITRACIN 28.4 GM OINTMENT TP PRN (11:30)
[2017-07-06] MEDS ORDERED: IBUPROFEN 600 MG TABLET PO PRN (11:30)
[2017-07-06] MEDS ORDERED: BENZOCAINE/MENTHOL LOZENGE MM PRN (11:30)
[2017-07-06] MEDS ORDERED: PETROLATUM,WHITE 71 GM JELLY TP PRN (11:30)
[2017-07-06] MEDS ORDERED: CloNIDine HCL 0.1 MG TABLET PO PRN (11:30)
[2017-07-06] MEDS ORDERED: MAGNESIUM HYDROXIDE SUSPENSION 30 ML UDCUP PO PRN (11:30)
[2017-07-06] MEDS ORDERED: ONDANSETRON HCL 4 MG TABLET PO PRN (11:30)
[2017-07-06] MEDS ORDERED: LOPERAMIDE HCL 2 MG CAPSULE PO PRN (11:30)
[2017-07-06] MEDS ORDERED: MAG HYDROX/AL HYDROX/SIMETH ES 30 ML SUSPENSION UDCUP PO PRN (11:30)
[2017-07-06] MEDS: ALBUTEROL SULFATE HFA 90 MCG/PUFF 8 GM INHALER IH PRN (11:45)
[2017-07-06] MEDS ORDERED: PALIPERIDONE PALMITATE 234 MG/1.5 ML SYRINGE IM ONE (15:00)
[2017-07-06 16:00] VITALS: BP 128/73
[2017-07-06] MEDS: LITHIUM CARBONATE 300 MG CAPSULE PO SCH (20:33)
[2017-07-07 05:58] VITALS: BP 130/86
[2017-07-07] MEDS: LEVOTHYROXINE SODIUM 100 MCG TABLET PO SCH (06:42)
[2017-07-07] MEDS: MULTIVITAMINS WITH MINERALS, THERAPEUTIC TABLET PO SCH (08:39)
[2017-07-07] MEDS: FOLIC ACID 1 MG TABLET PO SCH (08:39)
[2017-07-07] MEDS: DIVALPROEX SODIUM 250 MG ER TABLET PO SCH ×2 (08:39→16:43)
[2017-07-07] MEDS: ASPIRIN 81 MG EC TABLET PO SCH (08:39)
[2017-07-07] MEDS: DOCUSATE SODIUM 100 MG CAPSULE PO SCH (08:39)
[2017-07-07] MEDS: OMEPRAZOLE 20 MG CAPSULE PO SCH (08:40)
[2017-07-07] MEDS: NALTREXONE HCL 50 MG TABLET PO SCH (08:40)
[2017-07-07] MEDS: THIAMINE HCL 100 MG TABLET PO SCH ×2 (08:40→16:43)
[2017-07-07] MEDS: NICOTINE 21 MG/24 HOUR PATCH TD SCH (08:40)
[2017-07-07] MEDS: BACITRACIN 28.4 GM OINTMENT TP SCH (08:41)
[2017-07-07 08:55] LABS: ALANINE AMINOTRANSFERASE 18 U/L (12-78); ALBUMIN 3.6 g/dL (3.4-5.0); ALKALINE PHOSPHATASE 47 U/L (46-116); ANION GAP 6 mmol/L (8-16); ASPARTATE AMINOTRANSFERASE 14 U/L (15-37); BILIRUBIN,TOTAL 0.5 mg/dL (0.1-1.0); CALCIUM, TOTAL 9.3 mg/dL (8.8-10.5); CARBON DIOXIDE 29 mmol/L (22-29); CHLORIDE 105 mmol/L (98-107); CREATININE 0.98 mg/dL (0.60-1.30); GLOMERULAR FILTR. RATE CALC > 60 mL/min (>60); GLUCOSE,RANDOM 78 mg/dL (70-110); POTASSIUM 4.5 mmol/L (3.5-5.1); SODIUM SERUM 140 mmol/L (136-145); TOTAL PROTEIN, SERUM 7.1 g/dL (6.4-8.2); UREA NITROGEN, BLOOD 19 mg/dL (7-18)
[2017-07-07 09:13] VITALS: BP 117/58
[2017-07-07] MEDS: ALBUTEROL SULFATE HFA 90 MCG/PUFF 8 GM INHALER IH PRN (10:10)
[2017-07-07 17:10] VITALS: BP 111/63
[2017-07-07] MEDS: LITHIUM CARBONATE 300 MG CAPSULE PO SCH (20:38)
[2017-07-08] MEDS: LEVOTHYROXINE SODIUM 100 MCG TABLET PO SCH (06:39)
[2017-07-08 06:48] VITALS: BP 132/87
[2017-07-08 08:00] VITALS: BP 112/61
[2017-07-08] MEDS: ASPIRIN 81 MG EC TABLET PO SCH (08:23)
[2017-07-08] MEDS: FOLIC ACID 1 MG TABLET PO SCH (08:23)
[2017-07-08] MEDS: MULTIVITAMINS WITH MINERALS, THERAPEUTIC TABLET PO SCH (08:23)
[2017-07-08] MEDS: THIAMINE HCL 100 MG TABLET PO SCH ×2 (08:23→16:39)
[2017-07-08] MEDS: NALTREXONE HCL 50 MG TABLET PO SCH (08:23)
[2017-07-08] MEDS: OMEPRAZOLE 20 MG CAPSULE PO SCH (08:23)
[2017-07-08] MEDS: DIVALPROEX SODIUM 250 MG ER TABLET PO SCH ×2 (08:23→16:39)
[2017-07-08] MEDS: DOCUSATE SODIUM 100 MG CAPSULE PO SCH (08:23)
[2017-07-08] MEDS: BACITRACIN 28.4 GM OINTMENT TP SCH (08:24)
[2017-07-08] MEDS: NICOTINE 21 MG/24 HOUR PATCH TD SCH (08:24)
[2017-07-08 09:14] LABS: BASOPHILS % (AUTO) 0.3 % (0.0-2.0); EOSINOPHILS % (AUTO) 5.8 % (1.0-6.0); HEMATOCRIT 39.7 % (41-53); HEMOGLOBIN 13.7 g/dL (13.5-17.5); LYMPHOCYTES # (AUTO) 1.6 K/uL (1.0-4.8); LYMPHOCYTES % (AUTO) 30.8 % (22.0-44.0); MEAN CORPUSCULAR HEMOGLOBIN 30.8 pg (26.0-34.0); MEAN CORPUSCULAR HGB CONC 34.4 G/dL (31.0-37.0); MEAN CORPUSCULAR VOLUME 90 fL (80-100); MONOCYTES # (AUTO) 0.4 K/uL (0.1-1.0); MONOCYTES % (AUTO) 7.4 % (2.0-9.0); NEUTROPHILS # (AUTO) 2.9 K/uL (1.8-7.7); NEUTROPHILS % (AUTO) 55.7 % (40.0-70.0); PLATELET COUNT (AUTO) 182 K/uL (150-450); RED BLOOD CELL COUNT(AUTO) 4.43 MIL/uL (4.50-5.90); RED CELL DISTRIBUTION WIDTH 13.5 % (11.5-14.5)
[2017-07-08 09:47] LABS: ANION GAP 5 mmol/L (8-16); CALCIUM, TOTAL 9.3 mg/dL (8.8-10.5); CARBON DIOXIDE 30 mmol/L (22-29); CHLORIDE 105 mmol/L (98-107); CREATININE 1.07 mg/dL (0.60-1.30); GLOMERULAR FILTR. RATE CALC > 60 mL/min (>60); GLUCOSE,RANDOM 75 mg/dL (70-110); SODIUM SERUM 140 mmol/L (136-145); UREA NITROGEN, BLOOD 22 mg/dL (7-18)
[2017-07-08] MEDS ORDERED: NALT50TA PO (15:42)
[2017-07-08] MEDS ORDERED: LITH300C3 PO (15:42)
[2017-07-08] MEDS ORDERED: DIVA250T45 PO (15:42)
[2017-07-08] MEDS ORDERED: PALI156D IM (15:42)
[2017-07-08 16:27] VITALS: BP 137/86
[2017-07-08] MEDS: LITHIUM CARBONATE 300 MG CAPSULE PO SCH (20:31)
[2017-07-09 02:57] VITALS: BP 120/88
[2017-07-09] MEDS: LEVOTHYROXINE SODIUM 100 MCG TABLET PO SCH (06:33)
[2017-07-09 08:27] VITALS: BP 116/60
[2017-07-09] MEDS: DOCUSATE SODIUM 100 MG CAPSULE PO SCH (08:44)
[2017-07-09] MEDS: THIAMINE HCL 100 MG TABLET PO SCH (08:44)
[2017-07-09] MEDS: FOLIC ACID 1 MG TABLET PO SCH (08:44)
[2017-07-09] MEDS: MULTIVITAMINS WITH MINERALS, THERAPEUTIC TABLET PO SCH (08:45)
[2017-07-09] MEDS: ASPIRIN 81 MG EC TABLET PO SCH (08:45)
[2017-07-09] MEDS: OMEPRAZOLE 20 MG CAPSULE PO SCH (08:45)
[2017-07-09] MEDS: NALTREXONE HCL 50 MG TABLET PO SCH (08:45)
[2017-07-09] MEDS: DIVALPROEX SODIUM 250 MG ER TABLET PO SCH (08:45)
[2017-07-09] MEDS: NICOTINE 21 MG/24 HOUR PATCH TD SCH (08:46)
[2017-07-09] MEDS: BACITRACIN 28.4 GM OINTMENT TP SCH (08:46)
[2017-07-09] MEDS ORDERED: DSS100 PO (08:52)
[2017-07-10] MEDS ORDERED: PALIPERIDONE PALMITATE 156 MG/ML SYRINGE IM ONE (09:00)
== END 2017-07-09 15:20 | disposition home or self-care (01) | DRG 885 ==
LOC: B2X 16:52
PROVIDERS: ADMIT Psychiatry & Neurology Psychiatry; ATTEND Psychiatry & Neurology Psychiatry
DX: F25.9 Schizoaffective disorder, unspecified (principal); Z59.0 Homelessness; E03.9 Hypothyroidism, unspecified; Z91.19 Patient's noncompliance with other medical treatment and regimen; F17.210 Nicotine dependence, cigarettes, uncomplicated; F41.9 Anxiety disorder, unspecified; F32.9 Major depressive disorder, single episode, unspecified; G47.00 Insomnia, unspecified; I10 Essential (primary) hypertension; J44.9 Chronic obstructive pulmonary disease, unspecified; K59.00 Constipation, unspecified; M19.90 Unspecified osteoarthritis, unspecified site; E78.00 Pure hypercholesterolemia, unspecified; J45.909 Unspecified asthma, uncomplicated; Z79.899 Other long term (current) drug therapy; Z88.5 Allergy status to narcotic agent; Z88.8 Allergy status to other drugs, medicaments and biological substances; Z79.82 Long term (current) use of aspirin; Z79.51 Long term (current) use of inhaled steroids; Z71.6 Tobacco abuse counseling; Z71.41 Alcohol abuse counseling and surveillance of alcoholic
CPT/HCPCS: 80307; 83036; 84439; 84443; 86592; J3535

== ENCOUNTER 2017-08-30 09:45 | Inpatient (IN) | payer MEDICARE, MEDICAID ==
[~2017-08-30] VITALS: Ht 175.3 cm; Wt 91.9 kg
[~2017-08-30 09:45] MED LIST changes: -ALBU8HFA4 IH; -AMLO-511 PO; -AMLO2.5T PO; -ATEN50TA PO; +DIVA250T45 PO; -DIVA500T52 PO; -DOCU250C91 PO; +DSS100 PO; +NALT50TA PO; +PALI156D IM; -PALI234D IM; -TAMS0.4C32 PO; -TRIA15OI6 TP
[2017-08-30 10:32] VITALS: BP 121/89
[2017-08-30 11:50] VITALS: BP 111/87
[2017-08-30] MEDS ORDERED: PROMETHAZINE HCL 25 MG TABLET PO PRN (12:30)
[2017-08-30] MEDS ORDERED: HydrOXYzine PAMOATE 50 MG CAPSULE PO PRN (12:30)
[2017-08-30] MEDS ORDERED: PALIPERIDONE 1.5 MG ER TABLET PO PRN (12:30)
[2017-08-30] MEDS ORDERED: LOPERAMIDE HCL 2 MG CAPSULE PO PRN (12:30)
[2017-08-30] MEDS ORDERED: GuaiFENesin/D-METHORPHAN [SUGAR-FREE] 200-20MG/10 ML SYRUP UDCUP PO PRN (12:30)
[2017-08-30] MEDS ORDERED: MAG HYDROX/AL HYDROX/SIMETH ES 30 ML SUSPENSION UDCUP PO PRN (12:30)
[2017-08-30] MEDS ORDERED: ACETAMINOPHEN 325 MG TABLET PO PRN (12:30)
[2017-08-30] MEDS ORDERED: MAGNESIUM HYDROXIDE SUSPENSION 30 ML UDCUP PO PRN (12:30)
[2017-08-30] MEDS ORDERED: ZOLPIDEM TARTRATE 10 MG TABLET PO PRN (12:30)
[2017-08-30] MEDS: LORazepam 2 MG TABLET PO PRN (13:38)
[2017-08-30 16:15] VITALS: BP 136/80
[2017-08-30] MEDS: DIVALPROEX SODIUM 250 MG ER TABLET PO SCH (16:41)
[2017-08-30] MEDS: THIAMINE HCL 100 MG TABLET PO SCH (16:41)
[2017-08-30] MEDS: NICOTINE 14 MG/24 HOUR PATCH TD SCH (17:44)
[2017-08-30] MEDS: LITHIUM CARBONATE 300 MG CAPSULE PO SCH (21:13)
[2017-08-30] MEDS: PALIPERIDONE 3 MG ER TABLET PO SCH (21:13)
[2017-08-30] MEDS ORDERED: ONDANSETRON HCL 4 MG TABLET PO PRN (21:30)
[2017-08-30] MEDS ORDERED: CloNIDine HCL 0.1 MG TABLET PO PRN (21:30)
[2017-08-30] MEDS ORDERED: IBUPROFEN 600 MG TABLET PO PRN (21:30)
[2017-08-30] MEDS ORDERED: BENZOCAINE/MENTHOL LOZENGE MM PRN (21:30)
[2017-08-30] MEDS ORDERED: PETROLATUM,WHITE 71 GM JELLY TP PRN (21:30)
[2017-08-30] MEDS ORDERED: BACITRACIN 28.4 GM OINTMENT TP PRN (21:30)
[2017-08-31 06:48] VITALS: BP 130/80
[2017-08-31 08:10] VITALS: BP 119/63
[2017-08-31 08:43] LABS: LITHIUM 0.95 mmol/L (0.60-1.20)
[2017-08-31] MEDS: DIVALPROEX SODIUM 250 MG ER TABLET PO SCH ×2 (09:34→16:34)
[2017-08-31] MEDS: OMEPRAZOLE 20 MG CAPSULE PO SCH (09:34)
[2017-08-31] MEDS: FOLIC ACID 1 MG TABLET PO SCH (09:34)
[2017-08-31] MEDS: DOCUSATE SODIUM 100 MG CAPSULE PO SCH (09:34)
[2017-08-31] MEDS: NALTREXONE HCL 50 MG TABLET PO SCH (09:34)
[2017-08-31] MEDS: THIAMINE HCL 100 MG TABLET PO SCH ×2 (09:34→16:34)
[2017-08-31] MEDS: MULTIVITAMINS WITH MINERALS, THERAPEUTIC TABLET PO SCH (09:34)
[2017-08-31] MEDS: NICOTINE 14 MG/24 HOUR PATCH TD SCH (09:34)
[2017-08-31] MEDS: LORazepam 2 MG TABLET PO PRN (15:05)
[2017-08-31 16:17] VITALS: BP 124/66
[2017-08-31] MEDS: ALBUTEROL SULFATE HFA 90 MCG/PUFF 8 GM INHALER IH PRN (16:31)
[2017-08-31] MEDS: LITHIUM CARBONATE 300 MG CAPSULE PO SCH (20:32)
[2017-08-31] MEDS: PALIPERIDONE 3 MG ER TABLET PO SCH (20:32)
[2017-09-01 05:29] VITALS: BP 102/73
[2017-09-01 08:00] VITALS: BP 116/68
[2017-09-01 08:01] LABS: BASOPHILS % (AUTO) 0.5 % (0.0-2.0); EOSINOPHILS % (AUTO) 5.2 % (1.0-6.0); HEMATOCRIT 38.1 % (41-53); LYMPHOCYTES # (AUTO) 1.7 K/uL (1.0-4.8); LYMPHOCYTES % (AUTO) 39.7 % (22.0-44.0); MEAN CORPUSCULAR HEMOGLOBIN 30.3 pg (26.0-34.0); MEAN CORPUSCULAR HGB CONC 34.3 G/dL (31.0-37.0); MEAN CORPUSCULAR VOLUME 88 fL (80-100); MONOCYTES # (AUTO) 0.3 K/uL (0.1-1.0); MONOCYTES % (AUTO) 6.5 % (2.0-9.0); NEUTROPHILS # (AUTO) 2.1 K/uL (1.8-7.7); NEUTROPHILS % (AUTO) 48.1 % (40.0-70.0); PLATELET COUNT (AUTO) 277 K/uL (150-450); RED BLOOD CELL COUNT(AUTO) 4.31 MIL/uL (4.50-5.90); RED CELL DISTRIBUTION WIDTH 15.3 % (11.5-14.5)
[2017-09-01] MEDS: THIAMINE HCL 100 MG TABLET PO SCH ×2 (08:07→16:44)
[2017-09-01] MEDS: NALTREXONE HCL 50 MG TABLET PO SCH (08:07)
[2017-09-01] MEDS: MULTIVITAMINS WITH MINERALS, THERAPEUTIC TABLET PO SCH (08:07)
[2017-09-01] MEDS: OMEPRAZOLE 20 MG CAPSULE PO SCH (08:07)
[2017-09-01] MEDS: DOCUSATE SODIUM 100 MG CAPSULE PO SCH (08:07)
[2017-09-01] MEDS: FOLIC ACID 1 MG TABLET PO SCH (08:07)
[2017-09-01] MEDS: DIVALPROEX SODIUM 250 MG ER TABLET PO SCH ×2 (08:08→16:44)
[2017-09-01] MEDS: NICOTINE 14 MG/24 HOUR PATCH TD SCH (08:09)
[2017-09-01 08:11] LABS: HEMOGLOBIN A1C 5.2 % (4.5-6.2)
[2017-09-01 08:41] LABS: ALANINE AMINOTRANSFERASE 25 U/L (12-78); ALBUMIN 3.8 g/dL (3.4-5.0); ALKALINE PHOSPHATASE 56 U/L (46-116); ANION GAP 7 mmol/L (8-16); ASPARTATE AMINOTRANSFERASE 16 U/L (15-37); BILIRUBIN,TOTAL 0.8 mg/dL (0.1-1.0); CALCIUM, TOTAL 9.8 mg/dL (8.8-10.5); CARBON DIOXIDE 27 mmol/L (22-29); CHLORIDE 103 mmol/L (98-107); CHOL/HDL RATIO 3.1 (4.2-7.3); CHOLESTEROL 162 mg/dL (131-200); CREATININE 1.12 mg/dL (0.60-1.30); FREE T4 (FREE THYROXINE) 0.98 ng/dL (0.76-1.46); GLOMERULAR FILTR. RATE CALC > 60 mL/min (>60); GLUCOSE,RANDOM 89 mg/dL (70-110); HDL CHOLESTEROL 52 mg/dL (40-60); LDL CHOL (CALC.) 98 mg/dL (0-130); POTASSIUM 4.6 mmol/L (3.5-5.1); SODIUM SERUM 137 mmol/L (136-145); THYROID STIMULATING HORMONE 3.27 uIU/mL (0.36-3.74); TOTAL PROTEIN, SERUM 7.7 g/dL (6.4-8.2); TRIGLYCERIDES 59 mg/dL (15-150); UREA NITROGEN, BLOOD 24 mg/dL (7-18); VALPROIC ACID 64 mcg/mL (50-100)
[2017-09-01] MEDS: LORazepam 2 MG TABLET PO PRN ×2 (10:02→19:03)
[2017-09-01] MEDS ORDERED: PALIPERIDONE PALMITATE 234 MG/1.5 ML SYRINGE IM ONE (16:00)
[2017-09-01 16:10] VITALS: BP 130/74
[2017-09-01] MEDS: LITHIUM CARBONATE 300 MG CAPSULE PO SCH (20:58)
[2017-09-01] MEDS: PALIPERIDONE 3 MG ER TABLET PO SCH (20:58)
[2017-09-02 03:00] VITALS: BP 111/84
[2017-09-02 06:03] VITALS: BP 135/86
[2017-09-02 08:27] VITALS: BP 115/73
[2017-09-02] MEDS: DIVALPROEX SODIUM 250 MG ER TABLET PO SCH ×2 (08:43→16:32)
[2017-09-02] MEDS: MULTIVITAMINS WITH MINERALS, THERAPEUTIC TABLET PO SCH (08:43)
[2017-09-02] MEDS: NICOTINE 14 MG/24 HOUR PATCH TD SCH (08:43)
[2017-09-02] MEDS: DOCUSATE SODIUM 100 MG CAPSULE PO SCH (08:43)
[2017-09-02] MEDS: THIAMINE HCL 100 MG TABLET PO SCH ×2 (08:43→16:32)
[2017-09-02] MEDS: NALTREXONE HCL 50 MG TABLET PO SCH (08:43)
[2017-09-02] MEDS: FOLIC ACID 1 MG TABLET PO SCH (08:43)
[2017-09-02] MEDS: OMEPRAZOLE 20 MG CAPSULE PO SCH (08:43)
[2017-09-02] MEDS: ALBUTEROL SULFATE HFA 90 MCG/PUFF 8 GM INHALER IH PRN (10:12)
[2017-09-02] MEDS: LORazepam 2 MG TABLET PO PRN (12:02)
[2017-09-02] MEDS ORDERED: NALT50TA PO (15:24)
[2017-09-02] MEDS ORDERED: DIVA250T45 PO (15:24)
[2017-09-02] MEDS ORDERED: PALI234D IM (15:24)
[2017-09-02] MEDS ORDERED: LITH300C3 PO (15:24)
[2017-09-02 16:10] VITALS: BP 120/74
[2017-09-02] MEDS: PALIPERIDONE 3 MG ER TABLET PO SCH (20:35)
[2017-09-02] MEDS: LITHIUM CARBONATE 300 MG CAPSULE PO SCH (20:35)
[2017-09-03 06:33] VITALS: BP 106/60
[2017-09-03] MEDS: NALTREXONE HCL 50 MG TABLET PO SCH (08:34)
[2017-09-03] MEDS: DIVALPROEX SODIUM 250 MG ER TABLET PO SCH (08:34)
[2017-09-03] MEDS: THIAMINE HCL 100 MG TABLET PO SCH (08:34)
[2017-09-03] MEDS: OMEPRAZOLE 20 MG CAPSULE PO SCH (08:34)
[2017-09-03] MEDS: MULTIVITAMINS WITH MINERALS, THERAPEUTIC TABLET PO SCH (08:34)
[2017-09-03] MEDS: DOCUSATE SODIUM 100 MG CAPSULE PO SCH (08:34)
[2017-09-03] MEDS: FOLIC ACID 1 MG TABLET PO SCH (08:34)
[2017-09-03 08:49] VITALS: BP 124/76
[2017-09-03] MEDS ORDERED: PALI234D IM (09:01)
[2017-09-03] MEDS ORDERED: MUPI1OIN4 NS ×2 (09:53→09:54)
[2017-09-03] MEDS: NICOTINE 14 MG/24 HOUR PATCH TD SCH (09:53)
[2017-09-29] MEDS ORDERED: PALIPERIDONE PALMITATE 234 MG/1.5 ML SYRINGE IM SCH (09:00)
== END 2017-09-03 11:00 | disposition home or self-care (01) | DRG 885 ==
LOC: B2X 12:09
PROVIDERS: ADMIT Psychiatry & Neurology Psychiatry; ATTEND Psychiatry & Neurology Psychiatry
DX: F25.9 Schizoaffective disorder, unspecified (principal); E03.9 Hypothyroidism, unspecified; F17.200 Nicotine dependence, unspecified, uncomplicated; F41.9 Anxiety disorder, unspecified; G47.00 Insomnia, unspecified; I10 Essential (primary) hypertension; J44.9 Chronic obstructive pulmonary disease, unspecified; K59.00 Constipation, unspecified; D64.9 Anemia, unspecified; M19.90 Unspecified osteoarthritis, unspecified site; Z59.0 Homelessness; Z88.6 Allergy status to analgesic agent; Z71.6 Tobacco abuse counseling; Z71.41 Alcohol abuse counseling and surveillance of alcoholic; Z88.8 Allergy status to other drugs, medicaments and biological substances; Z91.19 Patient's noncompliance with other medical treatment and regimen
CPT/HCPCS: 83036; 84439; 84443; 87081; J3535

== ENCOUNTER → 2017-10-27 | Outpatient (CLI) | payer MEDICARE, OTHER ==
[~2017-10-27] MED LIST changes: -ASPI81 PO; -LEVO100 PO; +MUPI1OIN4 NS; -PALI156D IM; +PALI234D IM
[2017-10-27 16:33] LABS: LITHIUM 0.38 mmol/L (0.60-1.20)
== END | disposition home or self-care (01) ==
LOC: LABMN 11:00
PROVIDERS: ATTEND Psychiatry & Neurology Psychiatry
DX: F25.9 Schizoaffective disorder, unspecified (principal); I10 Essential (primary) hypertension; I25.10 Atherosclerotic heart disease of native coronary artery without angina pectoris; E11.9 Type 2 diabetes mellitus without complications; K21.9 Gastro-esophageal reflux disease without esophagitis; E78.5 Hyperlipidemia, unspecified; E78.00 Pure hypercholesterolemia, unspecified; E03.9 Hypothyroidism, unspecified; J45.909 Unspecified asthma, uncomplicated; Z72.0 Tobacco use; Z79.51 Long term (current) use of inhaled steroids; Z79.82 Long term (current) use of aspirin; Z79.899 Other long term (current) drug therapy

== ENCOUNTER → 2017-12-14 | Outpatient (CLI) | payer MEDICARE, OTHER ==
[~2017-12-14] MED LIST changes: +ASPI-1182 PO; +BENZ2TAB10 PO; +DIVA500T52 PO; +LEVO125T95 PO; -MUPI1OIN4 NS; -OMEP20 PO; +OXYB5SYR2 PO; +TAMS0.4C32 PO; +TRAZ-220 PO
== END | disposition home or self-care (01) ==
LOC: LABMN 11:12
PROVIDERS: ATTEND Internal Medicine
DX: F20.9 Schizophrenia, unspecified (principal); J44.9 Chronic obstructive pulmonary disease, unspecified; I10 Essential (primary) hypertension; E03.9 Hypothyroidism, unspecified; Z79.899 Other long term (current) drug therapy
CPT/HCPCS: 80074; 86706

== ENCOUNTER → 2018-02-04 | Outpatient (CLI) | payer MEDICARE, OTHER ==
[2018-02-09 12:50] LABS: LITHIUM 0.85 mmol/L (0.60-1.20)
== END | disposition home or self-care (01) ==
LOC: LABMN 13:00
PROVIDERS: ATTEND Psychiatry & Neurology Psychiatry
DX: F25.9 Schizoaffective disorder, unspecified (principal); J44.9 Chronic obstructive pulmonary disease, unspecified; I10 Essential (primary) hypertension; E03.9 Hypothyroidism, unspecified; Z79.899 Other long term (current) drug therapy

== ENCOUNTER → 2018-02-21 | Outpatient (CLI) | payer MEDICARE, OTHER | END | disposition home or self-care (01) | LOC: LABMN 11:00 | PROVIDERS: ATTEND Psychiatry & Neurology Psychiatry | DX: F17.210 Nicotine dependence, cigarettes, uncomplicated (principal) ==

== ENCOUNTER → 2018-03-14 | Outpatient (CLI) | payer MEDICARE, OTHER ==
[2018-03-25 12:06] LABS: HEMOGLOBIN A1C 5.5 % (4.5-6.2)
== END | disposition home or self-care (01) ==
LOC: LABMN 10:50
PROVIDERS: ATTEND Psychiatry & Neurology Psychiatry
DX: F25.9 Schizoaffective disorder, unspecified (principal); Z79.899 Other long term (current) drug therapy
CPT/HCPCS: 83036

== ENCOUNTER 2018-09-12 10:28 | Inpatient (IN) | payer MEDICARE, MEDICAID ==
[~2018-09-12] VITALS: Ht 175.3 cm; Wt 90.3 kg
[~2018-09-12 10:28] MED LIST changes: -BENZ2TAB10 PO; -LITH300C3 PO; -NALT50TA PO; +OLAN7.5T2 PO; -OXYB5SYR2 PO; -PALI234D IM; +PARO10TA89 PO
[2018-09-12 12:10] VITALS: BP 131/82
[2018-09-12] MEDS ORDERED: HALOPERIDOL 5 MG TABLET PO PRN (12:15)
[2018-09-12] MEDS ORDERED: MAGNESIUM HYDROXIDE SUSPENSION 30 ML UDCUP PO PRN (13:00)
[2018-09-12] MEDS ORDERED: TUBERCULIN, PURIFIED PROTEIN DERIVATIVE 5 TU/0.1 ML SYRINGE ID ONE (13:00)
[2018-09-12] MEDS ORDERED: PROMETHAZINE HCL 25 MG TABLET PO PRN (13:00)
[2018-09-12] MEDS ORDERED: ACETAMINOPHEN 325 MG TABLET PO PRN (13:00)
[2018-09-12] MEDS ORDERED: GuaiFENesin/D-METHORPHAN [SUGAR-FREE] 200-20MG/10 ML SYRUP UDCUP PO PRN (13:00)
[2018-09-12] MEDS ORDERED: OLANZapine 5 MG RAPDIS TABLET PO PRN (13:00)
[2018-09-12] MEDS ORDERED: MAG HYDROX/AL HYDROX/SIMETH ES 30 ML SUSPENSION UDCUP PO PRN (13:00)
[2018-09-12] MEDS ORDERED: HydrOXYzine PAMOATE 50 MG CAPSULE PO PRN (13:00)
[2018-09-12] MEDS ORDERED: LOPERAMIDE HCL 2 MG CAPSULE PO PRN (13:00)
[2018-09-12 14:21] VITALS: BP 145/76
[2018-09-12] MEDS: NALTREXONE HCL 50 MG TABLET PO SCH (14:23)
[2018-09-12] MEDS: PARoxetine HCL 10 MG TABLET PO SCH (14:23)
[2018-09-12] MEDS: BENZTROPINE MESYLATE 2 MG TABLET PO SCH ×2 (14:24→16:29)
[2018-09-12 16:12] VITALS: BP 119/76
[2018-09-12] MEDS: THIAMINE HCL 100 MG TABLET PO SCH (16:29)
[2018-09-12] MEDS: DIVALPROEX SODIUM 250 MG ER TABLET PO SCH (20:30)
[2018-09-12] MEDS: TraZODone HCL 150 MG TABLET PO SCH (20:31)
[2018-09-12] MEDS ORDERED: OLANZapine 10 MG TABLET PO SCH (21:00)
[2018-09-13 05:36] VITALS: BP 112/68
[2018-09-13 08:05] VITALS: BP 110/63
[2018-09-13 08:13] LABS: HEMOGLOBIN A1C 5.4 % (4.5-6.2)
[2018-09-13 08:16] LABS: AMPHET/METH SCREEN,URINE NEGATIVE (NEGATIVE); BARBITURATE SCREEN, URINE NEGATIVE (NEGATIVE); BENZODIAZEPINES SCREEN,URINE NEGATIVE (NEGATIVE); CANNABINOID SCREEN,URINE NEGATIVE (NEGATIVE); COCAINE SCREEN,URINE NEGATIVE (NEGATIVE); METHADONE SCREEN, URINE NEGATIVE (NEGATIVE); OPIATE SCREEN,URINE NEGATIVE (NEGATIVE)
[2018-09-13 08:17] LABS: BASOPHILS % (AUTO) 0.5 % (0.0-2.0); EOSINOPHILS % (AUTO) 4.1 % (1.0-6.0); HEMATOCRIT 33.6 % (41-53); HEMOGLOBIN 10.9 g/dL (13.5-17.5); LYMPHOCYTES # (AUTO) 1.1 K/uL (1.0-4.8); LYMPHOCYTES % (AUTO) 37.8 % (22.0-44.0); MEAN CORPUSCULAR HGB CONC 32.4 G/dL (31.0-37.0); MEAN CORPUSCULAR VOLUME 93 fL (80-100); MONOCYTES # (AUTO) 0.4 K/uL (0.1-1.0); MONOCYTES % (AUTO) 12.2 % (2.0-9.0); NEUTROPHILS # (AUTO) 1.4 K/uL (1.8-7.7); NEUTROPHILS % (AUTO) 45.4 % (40.0-70.0); PLATELET COUNT (AUTO) 195 K/uL (150-450); RED BLOOD CELL COUNT(AUTO) 3.63 MIL/uL (4.50-5.90); RED CELL DISTRIBUTION WIDTH 14.8 % (11.5-14.5)
[2018-09-13 08:17] LABS: PHENCYCLIDINE SCREEN,URINE NEGATIVE (NEGATIVE)
[2018-09-13] MEDS: BENZTROPINE MESYLATE 2 MG TABLET PO SCH ×3 (08:19→16:32)
[2018-09-13] MEDS: NALTREXONE HCL 50 MG TABLET PO SCH (08:19)
[2018-09-13] MEDS: FOLIC ACID 1 MG TABLET PO SCH (08:19)
[2018-09-13] MEDS: THIAMINE HCL 100 MG TABLET PO SCH ×2 (08:19→16:32)
[2018-09-13] MEDS: MULTIVITAMINS WITH MINERALS, THERAPEUTIC TABLET PO SCH (08:19)
[2018-09-13] MEDS: PARoxetine HCL 10 MG TABLET PO SCH (08:19)
[2018-09-13 08:22] LABS: APPEARANCE,URINE CLEAR (CLEAR); BILIRUBIN,URINE NEGATIVE (NEGATIVE); GLUCOSE, URINE (UA) NEGATIVE (NEGATIVE); KETONES,URINE NEGATIVE (NEGATIVE); LEUKOCYTE ESTERASE ,URINE NEGATIVE (NEGATIVE); NITRATE,URINE NEGATIVE (NEGATIVE); OCCULT BLOOD,URINE NEGATIVE (NEGATIVE); PH,URINE 5.5 (5.0-8.0); PROTEIN,URINE NEGATIVE (NEGATIVE)
[2018-09-13 08:27] LABS: ALANINE AMINOTRANSFERASE 17 U/L (12-78); ALBUMIN 2.9 g/dL (3.4-5.0); ALKALINE PHOSPHATASE 56 U/L (46-116); ANION GAP 6 mmol/L (8-16); ASPARTATE AMINOTRANSFERASE 24 U/L (15-37); BILIRUBIN,TOTAL 0.3 mg/dL (0.1-1.0); CALCIUM, TOTAL 9.2 mg/dL (8.8-10.5); CARBON DIOXIDE 29 mmol/L (22-29); CHLORIDE 111 mmol/L (98-107); CREATININE 0.99 mg/dL (0.60-1.30); FREE T4 (FREE THYROXINE) 0.98 ng/dL (0.76-1.46); GLOMERULAR FILTR. RATE CALC > 60 mL/min (>60); GLUCOSE,RANDOM 86 mg/dL (70-110); POTASSIUM 3.7 mmol/L (3.5-5.1); SODIUM SERUM 146 mmol/L (136-145); THYROID STIMULATING HORMONE 1.07 uIU/mL (0.36-3.74); UREA NITROGEN, BLOOD 12 mg/dL (7-18)
[2018-09-13 08:39] LABS: PLATELET MORPHOLOGY COMMENT LARGE PLTS PRESENT
[2018-09-13 16:07] VITALS: BP 120/84
[2018-09-13] MEDS: DIVALPROEX SODIUM 250 MG ER TABLET PO SCH (20:36)
[2018-09-13] MEDS: TraZODone HCL 150 MG TABLET PO SCH (20:36)
[2018-09-13] MEDS ORDERED: OLANZapine 10 MG TABLET PO SCH (21:00)
[2018-09-14 05:38] VITALS: BP 135/79
[2018-09-14] MEDS: NALTREXONE HCL 50 MG TABLET PO SCH (08:01)
[2018-09-14] MEDS: BENZTROPINE MESYLATE 2 MG TABLET PO SCH ×3 (08:01→16:36)
[2018-09-14] MEDS: THIAMINE HCL 100 MG TABLET PO SCH ×2 (08:01→16:36)
[2018-09-14] MEDS: PARoxetine HCL 10 MG TABLET PO SCH (08:01)
[2018-09-14] MEDS: MULTIVITAMINS WITH MINERALS, THERAPEUTIC TABLET PO SCH (08:01)
[2018-09-14] MEDS: FOLIC ACID 1 MG TABLET PO SCH (08:01)
[2018-09-14 08:08] VITALS: BP 120/65
[2018-09-14] MEDS: LORazepam 2 MG TABLET PO PRN (12:15)
[2018-09-14 16:03] VITALS: BP 130/90
[2018-09-14] MEDS: TraZODone HCL 150 MG TABLET PO SCH (20:30)
[2018-09-14] MEDS: DIVALPROEX SODIUM 250 MG ER TABLET PO SCH (20:30)
[2018-09-14] MEDS: OLANZapine 10 MG TABLET PO SCH (20:30)
[2018-09-15 05:14] VITALS: BP 121/68
[2018-09-15 08:15] VITALS: BP 136/87
[2018-09-15] MEDS: MULTIVITAMINS WITH MINERALS, THERAPEUTIC TABLET PO SCH (08:19)
[2018-09-15] MEDS: PARoxetine HCL 10 MG TABLET PO SCH (08:19)
[2018-09-15] MEDS: THIAMINE HCL 100 MG TABLET PO SCH ×2 (08:19→16:37)
[2018-09-15] MEDS: NALTREXONE HCL 50 MG TABLET PO SCH (08:19)
[2018-09-15] MEDS: BENZTROPINE MESYLATE 2 MG TABLET PO SCH ×3 (08:19→16:37)
[2018-09-15] MEDS: FOLIC ACID 1 MG TABLET PO SCH (08:19)
[2018-09-15] MEDS ORDERED: BENZOCAINE/MENTHOL LOZENGE MM PRN (10:15)
[2018-09-15] MEDS ORDERED: CloNIDine HCL 0.1 MG TABLET PO PRN (10:15)
[2018-09-15] MEDS ORDERED: BACITRACIN 28.4 GM OINTMENT TP PRN (10:15)
[2018-09-15] MEDS ORDERED: IBUPROFEN 600 MG TABLET PO PRN (10:15)
[2018-09-15] MEDS ORDERED: LOPERAMIDE HCL 2 MG CAPSULE PO PRN (10:15)
[2018-09-15] MEDS ORDERED: MAGNESIUM HYDROXIDE SUSPENSION 30 ML UDCUP PO PRN (10:15)
[2018-09-15] MEDS ORDERED: ONDANSETRON HCL 4 MG TABLET PO PRN (10:15)
[2018-09-15] MEDS ORDERED: PETROLATUM,WHITE 28 GM JELLY TP PRN (10:15)
[2018-09-15] MEDS ORDERED: MAG HYDROX/AL HYDROX/SIMETH ES 30 ML SUSPENSION UDCUP PO PRN (10:15)
[2018-09-15] MEDS: NICOTINE 21 MG/24 HOUR PATCH TD SCH (10:51)
[2018-09-15] MEDS: ALBUTEROL SULFATE HFA 90 MCG/PUFF 8 GM INHALER IH PRN ×2 (12:49→21:36)
[2018-09-15] MEDS: ACETAMINOPHEN 325 MG TABLET PO PRN (14:28)
[2018-09-15] MEDS: FERROUS SULFATE 325 MG EC TABLET PO SCH (16:37)
[2018-09-15 16:49] VITALS: BP 140/79
[2018-09-15] MEDS ORDERED: MULTIVITAMINS WITH IRON TABLET PO SCH (17:00)
[2018-09-15] MEDS: OLANZapine 10 MG TABLET PO SCH (20:58)
[2018-09-15] MEDS: DIVALPROEX SODIUM 250 MG ER TABLET PO SCH (20:58)
[2018-09-15] MEDS: TraZODone HCL 150 MG TABLET PO SCH (20:58)
[2018-09-16 00:09] VITALS: BP 138/72
[2018-09-16] MEDS: ZOLPIDEM TARTRATE 10 MG TABLET PO PRN (00:53)
[2018-09-16] MEDS: FERROUS SULFATE 325 MG EC TABLET PO SCH ×3 (06:53→16:34)
[2018-09-16] MEDS: DOCUSATE SODIUM 100 MG CAPSULE PO SCH (08:15)
[2018-09-16] MEDS: OMEPRAZOLE 20 MG CAPSULE PO SCH (08:15)
[2018-09-16] MEDS: FOLIC ACID 1 MG TABLET PO SCH (08:15)
[2018-09-16] MEDS: PARoxetine HCL 10 MG TABLET PO SCH (08:15)
[2018-09-16] MEDS: NALTREXONE HCL 50 MG TABLET PO SCH (08:15)
[2018-09-16] MEDS: BENZTROPINE MESYLATE 2 MG TABLET PO SCH ×3 (08:15→16:34)
[2018-09-16] MEDS: THIAMINE HCL 100 MG TABLET PO SCH ×2 (08:15→16:35)
[2018-09-16] MEDS: NICOTINE 21 MG/24 HOUR PATCH TD SCH (08:16)
[2018-09-16 08:30] VITALS: BP 155/90
[2018-09-16] MEDS: ALBUTEROL SULFATE HFA 90 MCG/PUFF 8 GM INHALER IH PRN ×2 (08:58→19:38)
[2018-09-16] MEDS: LORazepam 2 MG TABLET PO PRN (09:26)
[2018-09-16] MEDS: LISINOPRIL 10 MG TABLET PO SCH (10:07)
[2018-09-16 12:10] VITALS: BP 136/75
[2018-09-16 18:12] VITALS: BP 140/88
[2018-09-16] MEDS: TraZODone HCL 150 MG TABLET PO SCH (20:31)
[2018-09-16] MEDS: DIVALPROEX SODIUM 500 MG ER TABLET PO SCH (20:31)
[2018-09-16] MEDS: OLANZapine 10 MG TABLET PO SCH (20:31)
[2018-09-17 04:12] VITALS: BP 138/90
[2018-09-17] MEDS: FERROUS SULFATE 325 MG EC TABLET PO SCH ×3 (07:12→16:24)
[2018-09-17] MEDS: LISINOPRIL 10 MG TABLET PO SCH (08:18)
[2018-09-17] MEDS: THIAMINE HCL 100 MG TABLET PO SCH ×2 (08:18→16:24)
[2018-09-17] MEDS: PARoxetine HCL 10 MG TABLET PO SCH (08:18)
[2018-09-17] MEDS: BENZTROPINE MESYLATE 2 MG TABLET PO SCH ×3 (08:18→16:24)
[2018-09-17] MEDS: DOCUSATE SODIUM 100 MG CAPSULE PO SCH (08:18)
[2018-09-17] MEDS: NALTREXONE HCL 50 MG TABLET PO SCH (08:18)
[2018-09-17] MEDS: FOLIC ACID 1 MG TABLET PO SCH (08:18)
[2018-09-17] MEDS: OMEPRAZOLE 20 MG CAPSULE PO SCH (08:18)
[2018-09-17] MEDS: NICOTINE 21 MG/24 HOUR PATCH TD SCH (08:22)
[2018-09-17 08:24] VITALS: BP 139/99
[2018-09-17 16:22] VITALS: BP 123/96
[2018-09-17] MEDS: DIVALPROEX SODIUM 500 MG ER TABLET PO SCH (20:05)
[2018-09-17] MEDS: TraZODone HCL 150 MG TABLET PO SCH (20:05)
[2018-09-17] MEDS: OLANZapine 10 MG TABLET PO SCH (20:06)
[2018-09-17] MEDS: ZOLPIDEM TARTRATE 10 MG TABLET PO PRN (21:07)
[2018-09-18 00:19] VITALS: BP 134/8
[2018-09-18] MEDS: FERROUS SULFATE 325 MG EC TABLET PO SCH ×3 (06:23→16:08)
[2018-09-18 08:14] VITALS: BP 123/90
[2018-09-18] MEDS: OMEPRAZOLE 20 MG CAPSULE PO SCH (08:20)
[2018-09-18] MEDS: THIAMINE HCL 100 MG TABLET PO SCH ×2 (08:20→16:08)
[2018-09-18] MEDS: PARoxetine HCL 10 MG TABLET PO SCH (08:20)
[2018-09-18] MEDS: LISINOPRIL 10 MG TABLET PO SCH (08:20)
[2018-09-18] MEDS: NICOTINE 21 MG/24 HOUR PATCH TD SCH (08:20)
[2018-09-18] MEDS: NALTREXONE HCL 50 MG TABLET PO SCH (08:20)
[2018-09-18] MEDS: FOLIC ACID 1 MG TABLET PO SCH (08:20)
[2018-09-18] MEDS: DOCUSATE SODIUM 100 MG CAPSULE PO SCH (08:20)
[2018-09-18] MEDS: BENZTROPINE MESYLATE 2 MG TABLET PO SCH ×3 (08:20→16:08)
[2018-09-18] MEDS: ALBUTEROL SULFATE HFA 90 MCG/PUFF 8 GM INHALER IH PRN ×2 (09:11→20:33)
[2018-09-18 16:16] VITALS: BP 140/90
[2018-09-18] MEDS ORDERED: PALI234D IM (18:47)
[2018-09-18] MEDS ORDERED: TRAZ150 PO (19:26)
[2018-09-18] MEDS ORDERED: LEVO100 PO (19:26)
[2018-09-18 19:27] VITALS: BP 149/99
[2018-09-18] MEDS ORDERED: LISINOPRIL 20 MG TABLET PO ONE (19:30)
[2018-09-18] MEDS: DIVALPROEX SODIUM 500 MG ER TABLET PO SCH (20:07)
[2018-09-18] MEDS: TraZODone HCL 150 MG TABLET PO SCH (20:07)
[2018-09-18] MEDS: OLANZapine 10 MG TABLET PO SCH (20:07)
[2018-09-18] MEDS: LORazepam 2 MG TABLET PO PRN (21:08)
[2018-09-18 22:00] VITALS: BP 105/67
[2018-09-19 04:11] VITALS: BP 119/76
[2018-09-19] MEDS: FERROUS SULFATE 325 MG EC TABLET PO SCH ×3 (06:38→17:01)
[2018-09-19] MEDS: PARoxetine HCL 10 MG TABLET PO SCH (08:15)
[2018-09-19] MEDS: NICOTINE 21 MG/24 HOUR PATCH TD SCH (08:15)
[2018-09-19] MEDS: BENZTROPINE MESYLATE 2 MG TABLET PO SCH ×3 (08:15→17:01)
[2018-09-19] MEDS: LISINOPRIL 20 MG TABLET PO SCH (08:15)
[2018-09-19] MEDS: OMEPRAZOLE 20 MG CAPSULE PO SCH (08:16)
[2018-09-19] MEDS: FOLIC ACID 1 MG TABLET PO SCH (08:16)
[2018-09-19] MEDS: THIAMINE HCL 100 MG TABLET PO SCH ×2 (08:16→17:01)
[2018-09-19] MEDS: DOCUSATE SODIUM 100 MG CAPSULE PO SCH (08:16)
[2018-09-19] MEDS: NALTREXONE HCL 50 MG TABLET PO SCH (08:16)
[2018-09-19 08:19] VITALS: BP 159/80
[2018-09-19] MEDS: LORazepam 2 MG TABLET PO PRN (08:45)
[2018-09-19 16:28] VITALS: BP 124/77
[2018-09-19] MEDS: DIVALPROEX SODIUM 500 MG ER TABLET PO SCH (20:35)
[2018-09-19] MEDS: TraZODone HCL 150 MG TABLET PO SCH (20:35)
[2018-09-19] MEDS: OLANZapine 10 MG TABLET PO SCH (20:35)
[2018-09-20 02:02] VITALS: BP 142/90
[2018-09-20] MEDS: FERROUS SULFATE 325 MG EC TABLET PO SCH ×3 (06:38→16:30)
[2018-09-20 07:39] LABS: BAND NEUTROPHILS % (MANUAL) 0 % (0-5)
[2018-09-20 07:41] LABS: HEMATOCRIT 33.6 % (41-53); HEMOGLOBIN 10.9 g/dL (13.5-17.5); MEAN CORPUSCULAR HEMOGLOBIN 29.9 pg (26.0-34.0); MEAN CORPUSCULAR HGB CONC 32.5 G/dL (31.0-37.0); MEAN CORPUSCULAR VOLUME 92 fL (80-100); PLATELET COUNT (AUTO) 205 K/uL (150-450); RED BLOOD CELL COUNT(AUTO) 3.65 MIL/uL (4.50-5.90); RED CELL DISTRIBUTION WIDTH 15.6 % (11.5-14.5)
[2018-09-20 08:16] LABS: ANION GAP 5 mmol/L (8-16); CALCIUM, TOTAL 9.7 mg/dL (8.8-10.5); CARBON DIOXIDE 31 mmol/L (22-29); CHLORIDE 107 mmol/L (98-107); CREATININE 1.07 mg/dL (0.60-1.30); GLOMERULAR FILTR. RATE CALC > 60 mL/min (>60); GLUCOSE,RANDOM 73 mg/dL (70-110); PHOSPHORUS 3.4 mg/dL (2.5-4.9); POTASSIUM 4.5 mmol/L (3.5-5.1); SODIUM SERUM 143 mmol/L (136-145); UREA NITROGEN, BLOOD 17 mg/dL (7-18); VALPROIC ACID 72 mcg/mL (50-100)
[2018-09-20] MEDS: PARoxetine HCL 10 MG TABLET PO SCH (08:16)
[2018-09-20] MEDS: FOLIC ACID 1 MG TABLET PO SCH (08:16)
[2018-09-20] MEDS: DOCUSATE SODIUM 100 MG CAPSULE PO SCH (08:16)
[2018-09-20] MEDS: LISINOPRIL 20 MG TABLET PO SCH (08:16)
[2018-09-20] MEDS: BENZTROPINE MESYLATE 2 MG TABLET PO SCH ×2 (08:16→12:05)
[2018-09-20] MEDS: NALTREXONE HCL 50 MG TABLET PO SCH (08:16)
[2018-09-20] MEDS: THIAMINE HCL 100 MG TABLET PO SCH ×2 (08:16→16:30)
[2018-09-20] MEDS: OMEPRAZOLE 20 MG CAPSULE PO SCH (08:16)
[2018-09-20 08:18] LABS: EOSINOPHILS % (MANUAL) 2 % (1-6); LYMPHOCYTES % (MANUAL) 51 % (22-44); MONOCYTES % (MANUAL) 3 % (2-9); PLATELET MORPHOLOGY COMMENT LARGE PLTS PRESENT; SEGMENTED NEUTROPHILS % 44 % (40-70)
[2018-09-20] MEDS: NICOTINE 21 MG/24 HOUR PATCH TD SCH (08:19)
[2018-09-20 08:22] VITALS: BP 119/85
[2018-09-20] MEDS: ALBUTEROL SULFATE HFA 90 MCG/PUFF 8 GM INHALER IH PRN ×2 (08:45→18:27)
[2018-09-20 16:17] VITALS: BP 116/79
[2018-09-20] MEDS: BENZTROPINE MESYLATE 1 MG TABLET PO SCH (16:29)
[2018-09-20] MEDS: OLANZapine 10 MG TABLET PO SCH (20:50)
[2018-09-20] MEDS: DIVALPROEX SODIUM 500 MG ER TABLET PO SCH (20:50)
[2018-09-20] MEDS: TraZODone HCL 150 MG TABLET PO SCH (20:50)
[2018-09-21 03:12] VITALS: BP 121/83
[2018-09-21] MEDS: FERROUS SULFATE 325 MG EC TABLET PO SCH ×3 (06:31→16:40)
[2018-09-21] MEDS: DOCUSATE SODIUM 100 MG CAPSULE PO SCH (08:13)
[2018-09-21] MEDS: OMEPRAZOLE 20 MG CAPSULE PO SCH (08:13)
[2018-09-21] MEDS: THIAMINE HCL 100 MG TABLET PO SCH ×2 (08:13→16:40)
[2018-09-21] MEDS: BENZTROPINE MESYLATE 1 MG TABLET PO SCH ×3 (08:13→16:40)
[2018-09-21] MEDS: LISINOPRIL 20 MG TABLET PO SCH (08:13)
[2018-09-21] MEDS: NALTREXONE HCL 50 MG TABLET PO SCH (08:13)
[2018-09-21] MEDS: FOLIC ACID 1 MG TABLET PO SCH (08:13)
[2018-09-21 08:14] VITALS: BP 123/85
[2018-09-21] MEDS: PARoxetine HCL 10 MG TABLET PO SCH (08:14)
[2018-09-21] MEDS: NICOTINE 21 MG/24 HOUR PATCH TD SCH (08:14)
[2018-09-21 16:46] VITALS: BP 134/86
[2018-09-21] MEDS: TraZODone HCL 150 MG TABLET PO SCH (20:35)
[2018-09-21] MEDS: DIVALPROEX SODIUM 500 MG ER TABLET PO SCH (20:35)
[2018-09-21] MEDS: OLANZapine 10 MG TABLET PO SCH (20:35)
[2018-09-22 00:25] VITALS: BP 126/80
[2018-09-22] MEDS: ACETAMINOPHEN 325 MG TABLET PO PRN (02:04)
[2018-09-22 02:05] VITALS: BP 120/81
[2018-09-22] MEDS: FERROUS SULFATE 325 MG EC TABLET PO SCH ×3 (06:35→16:36)
[2018-09-22] MEDS: THIAMINE HCL 100 MG TABLET PO SCH (08:07)
[2018-09-22] MEDS: OMEPRAZOLE 20 MG CAPSULE PO SCH (08:07)
[2018-09-22] MEDS: DOCUSATE SODIUM 100 MG CAPSULE PO SCH (08:07)
[2018-09-22] MEDS: LISINOPRIL 20 MG TABLET PO SCH (08:07)
[2018-09-22] MEDS: BENZTROPINE MESYLATE 1 MG TABLET PO SCH ×3 (08:07→16:36)
[2018-09-22] MEDS: FOLIC ACID 1 MG TABLET PO SCH (08:07)
[2018-09-22] MEDS: NALTREXONE HCL 50 MG TABLET PO SCH (08:07)
[2018-09-22] MEDS: PARoxetine HCL 10 MG TABLET PO SCH (08:07)
[2018-09-22] MEDS: NICOTINE 21 MG/24 HOUR PATCH TD SCH (08:08)
[2018-09-22 08:53] VITALS: BP 146/97
[2018-09-22 10:30] VITALS: BP 124/89
[2018-09-22] MEDS ORDERED: OLAN10TA20 PO (14:49)
[2018-09-22] MEDS ORDERED: DIVA500T52 PO (14:49)
[2018-09-22] MEDS ORDERED: PARO10TA71 PO (14:49)
[2018-09-22] MEDS ORDERED: TRAZ150 PO (14:49)
[2018-09-22] MEDS ORDERED: BENZ1TAB10 PO (14:49)
[2018-09-22] MEDS ORDERED: NALT50TA PO (14:49)
[2018-09-22 16:13] VITALS: BP 115/94
[2018-09-22] MEDS: OLANZapine 10 MG TABLET PO SCH (20:35)
[2018-09-22] MEDS: TraZODone HCL 150 MG TABLET PO SCH (20:36)
[2018-09-22] MEDS: DIVALPROEX SODIUM 500 MG ER TABLET PO SCH (20:36)
[2018-09-23 00:24] VITALS: BP 110/68
[2018-09-23] MEDS: FERROUS SULFATE 325 MG EC TABLET PO SCH ×2 (06:35→12:01)
[2018-09-23] MEDS: DOCUSATE SODIUM 100 MG CAPSULE PO SCH (08:06)
[2018-09-23] MEDS: BENZTROPINE MESYLATE 1 MG TABLET PO SCH ×2 (08:06→12:01)
[2018-09-23] MEDS: NALTREXONE HCL 50 MG TABLET PO SCH (08:06)
[2018-09-23] MEDS: OMEPRAZOLE 20 MG CAPSULE PO SCH (08:06)
[2018-09-23] MEDS: PARoxetine HCL 10 MG TABLET PO SCH (08:06)
[2018-09-23] MEDS: LISINOPRIL 20 MG TABLET PO SCH (08:07)
[2018-09-23] MEDS: NICOTINE 21 MG/24 HOUR PATCH TD SCH (08:07)
[2018-09-23 08:21] VITALS: BP 139/81
[2018-09-23] MEDS ORDERED: FERR-89 PO (09:02)
[2018-09-23] MEDS ORDERED: OLAN10TA3 PO (09:02)
[2018-09-23] MEDS ORDERED: LISI-662 PO (09:02)
[2018-09-23] MEDS ORDERED: NALT50TA6 PO (09:02)
[2018-09-23] MEDS ORDERED: BENZ1TAB10 PO (09:02)
[2018-09-23] MEDS: ALBUTEROL SULFATE HFA 90 MCG/PUFF 8 GM INHALER IH PRN (10:16)
[2018-10-07] MEDS ORDERED: MULTIVITAMINS WITH IRON TABLET PO SCH (09:00)
== END 2018-09-23 13:30 | disposition home or self-care (01) | DRG 885 ==
LOC: B2X 13:11
PROVIDERS: ADMIT Psychiatry & Neurology Psychiatry; ATTEND Psychiatry & Neurology Psychiatry
DX: F25.9 Schizoaffective disorder, unspecified (principal); F17.200 Nicotine dependence, unspecified, uncomplicated; J44.9 Chronic obstructive pulmonary disease, unspecified; I10 Essential (primary) hypertension; E03.9 Hypothyroidism, unspecified; M19.90 Unspecified osteoarthritis, unspecified site; K59.00 Constipation, unspecified; F41.9 Anxiety disorder, unspecified; G47.00 Insomnia, unspecified; R45.87 Impulsiveness; E78.00 Pure hypercholesterolemia, unspecified; F25.0 Schizoaffective disorder, bipolar type; N40.0 Benign prostatic hyperplasia without lower urinary tract symptoms; Z59.0 Homelessness; Z91.19 Patient's noncompliance with other medical treatment and regimen; Z79.899 Other long term (current) drug therapy
CPT/HCPCS: 80307; 83036; 83735; 84100; 84439; 84443; 85007; 87081; 93005; J3535